=== PATIENT | female | born 1935 | race Caucasian/White ===

== ENCOUNTER → 2021-06-15 13:11 | Outpatient (BNVA) | payer OTHER, SELFPAY | PROVIDERS: PCP Internal Medicine; Visit Provider Nurse Practitioner Family ==

== ENCOUNTER → 2021-08-18 09:25 | Outpatient (BNVA) | payer OTHER, SELFPAY | PROVIDERS: PCP Internal Medicine; Visit Provider Nurse Practitioner Family | DX: F09 Unspecified mental disorder due to known physiological condition (principal) ==

== ENCOUNTER → 2022-03-30 13:28 | Outpatient (BNVA) | payer OTHER, SELFPAY | PROVIDERS: PCP Internal Medicine; Visit Provider Nurse Practitioner Family | DX: F09 Unspecified mental disorder due to known physiological condition (principal) ==

== ENCOUNTER 2022-06-06 13:42 | Outpatient (REF) | payer OTHER, SELFPAY ==
--- NOTE | ~2022-06-06 | MR_ITS ---
EXAMINATION: MR BRAIN WITHOUT CONTRAST CLINICAL INFORMATION: Headache COMPARISON: MRI of the brain without contrast 06/18/2021 TECHNIQUE: Multiplanar multisequence MR imaging of the brain was obtained without intravenous contrast. FINDINGS: There is no acute infarct on diffusion-weighted imaging. There is no intracranial hemorrhage on iron-sensitive imaging. No extra-axial collection or mass effect/herniation. Scattered periventricular and deep white matter T2 FLAIR hyperintensities consistent with mild underlying microangiopathy. No hydrocephalus. Moderate generalized volume loss with commensurate sulcal and ventricular prominence. Stable absent left intradural vertebral artery flow-void, likely reflecting chronic high-grade stenosis or occlusion The midline structures are normal. The cerebellar tonsils are normally positioned. The craniocervical junction is normal. Degenerative changes of the upper cervical spine. Marrow signal is within normal limits. The visualized soft tissues are without significant abnormality. No signal abnormality within the paranasal sinuses or within the mastoid air cells. MR/MR head/brain wo con IMPRESSION: 1. No acute intracranial abnormality. 2. Generalized cerebral volume loss and chronic microangiopathy 3. Stable absent left intradural vertebral artery flow-void, likely reflecting chronic high-grade stenosis or occlusion.
== END 2022-06-06 13:43 | disposition home or self-care (01) ==
LOC: HO.MRI 13:42
PROVIDERS: PCP Internal Medicine; Visit Provider Nurse Practitioner Family
DX: R53.83 Other fatigue (principal); R51.9 Headache, unspecified; F09 Unspecified mental disorder due to known physiological condition
CPT/HCPCS: 70551

== ENCOUNTER → 2022-06-12 15:58 | Outpatient (BNVA) | payer OTHER, SELFPAY | PROVIDERS: PCP Internal Medicine; Visit Provider Nurse Practitioner Family | DX: Z13.89 Encounter for screening for other disorder (principal) ==

== ENCOUNTER 2022-11-20 07:33 | Outpatient (AMB) | payer OTHER, SELFPAY ==
[2022-11-20 07:43] VITALS: BP 148/62; PULSE 59; O2SAT 96; BMI 20.7
--- NOTE | 2022-11-20 07:43 | A.OFFVIS_ITS ---
Intake Vital Signs 11/20/22 07:43 Height 5 ft 4 in Weight 120 lb 8 oz BMI 20.7 BP 148/62 H Blood Pressure Location Rt brachial Position Sitting Pulse 59 Pulse Source Pulse Oximeter Pulse Oximetry (%) 96 Oxygen Delivery Method Room Air Intake Visit Reasons: f/u appt for cognitive disfunction - Confirmed Intake Note: Pt presents as a f/u cognitive dysfunction. Pt states heaviness in the head again. Pt also complains of pain in her leg. Heaviness returned about 3-4 weeks ago. Pt fell out of bed on and her knee and hips hurt so they have been trying to get an xray. Aboriginal Education Worker Coordinator Required: No Accompanied by: Other Relationship Allergies No Known Allergies Allergy (Verified 11/20/22 07:50) Medication List - Last Reconciled 11/20/22 by JOSEPH Branch amlodipine 2.5 mg PO DAILY cholecalciferol (vitamin D3) 10 mcg PO DAILY donepezil 10 mg PO BEDTIME 90 days fluticasone propion-salmeterol 250-50 mcg/dose 1 inh inhalation Q12H selmcrmiowf-owmtsnvhc-stsydzca 100-62.5-25 mcg (Trelegy Ellipta) 1 ea inhalation DAILY magnesium oxide 400 mg PO BEDTIME 90 days mecobalamin (vitamin B12) 5,000 mcg orally daily; 90 days memantine 28 mg PO DAILY 90 days riboflavin (vitamin B2) 400 mg PO DAILY 90 days HPI HPI Comments History of Present Illness Details 86-yr-old female presents for f/u visit, pt is accompanied by her stepdtr Yvette. Pt reports that she had a fall 5 days ago. She states she fell out of bed- notes that she was sleeping in a twin bed and possibly rolled out of it. Since, she has been having right hip and right knee steady aching pain, which moves down into the leg. The knee pain is worse. She has home PT and OT- they have suggested she sleep in an alternate room, which has a bigger bed. She has been having increased top of head heaviness again. Pt states Pt has been doing some cervical/cranial massage. In the past, Amitriptyline 10mg was taken for a few days- but was stopped after 2-3 days as she was admitted to the hospital w/ dehydration. In the past, she did try gepant samples, which did seem to be somewhat helpful. Yvette is also concerned about pt's cognition- tra in terms of pt being susceptible to fraud and signing up for services she does not need- say especially when sales people come to her house. She has written checks for things she did not need. Family plans to remove all checks from the premises, however Yvette is concerned about how to prevent pt from unintentionally signing contracts etc. 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 [facility] Medical History (Updated 11/20/22 @ 14:03 by JOSEPH Branch) Cataract Cognitive dysfunction COPD (chronic obstructive pulmonary disease) HTN (hypertension) Surgical History H/O: hysterectomy History of back surgery Social History Household Members: None Housing: House Alcohol intake: current Alcohol intake frequency: holidays/special occasions only Patient Tobacco Use Status: Former Tobacco user Review of Systems Const All systems reviewed & are unremarkable except as noted in HPI and below Physical Exam Vital Signs: Last Vital Signs Pulse 59 11/20/22 07:43 BP 148/62 H 11/20/22 07:43 Pulse Ox 96 11/20/22 07:43 Oxygen Delivery Method Room Air 11/20/22 07:43 BMI result Body Mass Index 20.7 Const General: cooperative and no acute distress Orientation/consciousness: patient oriented x3 Resp Effort & Inspection: normal respiratory effort and able to speak in complete sentences Back/Spine/Pelvis Other: Bilateral posterior cervical tightness. Cervical ROM: full Left Spurling: normal Right Spurling: normal. Neuro Other: No scalp tenderness. General: patient oriented x3 Cranial nerves: Yes CN's II-XII intact bilaterally Extrem Right lower extremity: hip/thigh Details: tenderness and normal ROM and knee Details: tenderness, swelling and abnormal ROM Details: pain with active ROM during Details: in extension and in flexion and pain with passive ROM during Details: in extension and in flexion Assessment & Plan Assessment & Plan (1) Cognitive dysfunction: Comment: Forgetfulness, repeating herself, impaired executive functioning. Code(s): F09 - Unspecified mental disorder due to known physiological condition (2) Headache: Code(s): R51.9 - Headache, unspecified (3) Right knee pain: Code(s): M25.561 - Pain in right knee (4) Fall: Code(s): W19.XXXA - Unspecified fall, initial encounter (5) Acute right hip pain: Code(s): M25.551 - Pain in right hip Plan For headache: Stopped Amitriptyline 10mg qhs- ? not tolerated d/t dehydration. Trial Gabapentin 100-300mg qhs. Continue Mag and B2. Concur w/ PT and OT For impaired cognition: Continue Namenda 28mg qd. Continue Donepazil 10mg qhs. Advised to f/u w/ pt's water superintendent- likely pt's POA should be invoked/activated. For right hip and knee pain s/p fall- Check right knee and hip XR. f/u in 3-4 months or sooner prn Orders: Orders XR knee RT 4V Today M25.561 - Pain in right knee, W19.XXXA - Unspecified fall, initial encounter XR hip RT w PEL1V Today M25.551 - Pain in right hip, W19.XXXA - Unspecified fall, initial encounter Medications: New gabapentin 100 - 300 mg (1 - 3 x 100 mg) PO BEDTIME 30 days 90 caps 3RF Coding Level of Care Code Est Pt Level 4 (85795) Diagnoses Cognitive dysfunction F09 Headache R51.9 Right knee pain M25.561 Fall W19.XXXA Acute right hip pain M25.551
== END 2022-11-20 08:40 | disposition home or self-care (01) ==
PROVIDERS: PCP Internal Medicine; Visit Provider Nurse Practitioner Family
DX: R41.89 Other symptoms and signs involving cognitive functions and awareness (principal); R51.9 Headache, unspecified; M25.561 Pain in right knee; W06.XXXA Fall from bed, initial encounter; M25.551 Pain in right hip
CPT/HCPCS: 99214

== ENCOUNTER → 2022-11-20 07:33 | Outpatient (BNVA) | payer OTHER, SELFPAY | PROVIDERS: PCP Internal Medicine; Visit Provider Nurse Practitioner Family ==

== ENCOUNTER 2023-03-05 09:43 | Outpatient (AMB) | payer OTHER, SELFPAY ==
--- NOTE | 2023-03-05 09:45 | A.OFFVIS_ITS ---
Intake Vital Signs 03/05/23 09:50 Height 5 ft 4 in Weight 121 lb BMI 20.8 BP 118/60 Blood Pressure Location Rt brachial Position Sitting Pulse 62 Pulse Source Pulse Oximeter Pulse Oximetry (%) 98 Oxygen Delivery Method Room Air Intake Visit Reasons: f/u appt cognitive disfunction/Confirmed Intake Note: Patient presents for follow up. still having issues with the heaviness feeling on top of her head. Allergies No Known Allergies Allergy (Verified 03/05/23 09:53) Medication List - Last Reconciled 03/05/23 by JOSEPH Branch amlodipine 2.5 mg PO DAILY cholecalciferol (vitamin D3) 10 mcg PO DAILY donepezil 10 mg PO BEDTIME 90 days fluticasone propion-salmeterol 250-50 mcg/dose 1 inh inhalation Q12H dwmxvyyniao-bykzcyyft-collcjhk 100-62.5-25 mcg (Trelegy Ellipta) 1 ea inhalation DAILY gabapentin 200 mg (2 x 100 mg) PO BEDTIME 90 days gabapentin 300 mg PO BEDTIME 90 days magnesium oxide 400 mg PO BEDTIME 90 days mecobalamin (vitamin B12) 5,000 mcg orally daily; 90 days memantine 28 mg PO DAILY 90 days riboflavin (vitamin B2) 400 mg PO DAILY 90 days HPI HPI Comments History of Present Illness Details 87-yr-old female presents for f/u visit, accompanied by her stepdtr Yvette. Pt had hospitalization in Dec-Jan for Covid-19- was feeling run down and increased top of head heaviness. She continues to have have the top of head heaviness- waking up most days w/ 10/15 head heaviness, which subsides as the day progresses. When the head heaviness is worse- sometimes her right eye droops. She uses Tylenol 1-2 x's per day. The gepant sample was tried twice- but not very effective. She is taking Gabapentin 100mg qhs, sometimes bid- which helps the sciatica but not really the headache. Her cognition is a bit worse. She has been susceptible to fraud schemes. She is not as detailed in her descriptions of her physical symptoms. She continues to live alone with support from family, neighbors, and Yvette helps to manage her care/home. She is compliant w/ Donepazil and Namenda Xr 28mg qd. [facility] Medical History (Updated 03/05/23 @ 20:51 by JOSEPH Branch) Cataract COPD (chronic obstructive pulmonary disease) HTN (hypertension) Cognitive dysfunction Surgical History H/O: hysterectomy History of back surgery Social History Household Members: None Housing: House Alcohol intake: current Alcohol intake frequency: holidays/special occasions only Patient Tobacco Use Status: Former Tobacco user Review of Systems Const All systems reviewed & are unremarkable except as noted in HPI and below Physical Exam Vital Signs: Last Vital Signs Pulse 62 03/05/23 09:50 BP 118/60 03/05/23 09:50 Pulse Ox 98 03/05/23 09:50 Oxygen Delivery Method Room Air 03/05/23 09:50 BMI result Body Mass Index 20.8 Const General: cooperative and no acute distress HEENT Head: Yes normocephalic Resp Effort & Inspection: normal respiratory effort and able to speak in complete sentences Neuro Other: Alert, responding appropriately. STM lapses- unable to state date, year, country. No palpable scalp tenderness. Posterior and lateral cervical tightness and tenderness. General: gait normal and CN's II-XI intact bilaterally (w/ mild right eye droop) Cognition (Neuro): normal cognition Motor exam (neuro): 5/5 motor strength present throughout Deep tendon reflexes (DTR's): Right triceps reflex intensity grade: 2+, Left triceps reflex intensity grade: 2+, Rt Biceps (C5, C6): 2+, Left biceps reflex intensity grade: 2+, Right brachioradialis reflex intensity grade: 2+, Left brachioradialis reflex intensity grade: 2+, Right patellar reflex intensity grade: 1+ and Left patellar reflex intensity grade: 1+ Psych Speech and movement: Normal speech and movement present Attitude: cooperative Assessment & Plan Assessment & Plan (1) Headache: Code(s): R51.9 - Headache, unspecified (2) Cervical spinal stenosis: Comment: Multilevel degenerative spinal arthropathy. Moderate spinal canal stenosis at C5-C6. Mild spinal canal stenoses at C4-C5 and C6-C7. Moderate to severe neural foraminal stenoses from C3-C7. Code(s): M48.02 - Spinal stenosis, cervical region (3) Migraine without aura: Code(s): G43.009 - Migraine without aura, not intractable, without status migrainosus Plan For headache, migraine, cervicalgia: Discussed trying to wean off Namneda- there are reports of top of head heaviness w/ Namenda, however dtr is concerned this may worsen her cognition. Trial Emgality 250mg sc x's 1 then 120mg sc q month- family will assist pt. Continue Gabapentin 100-300mg qhs. Continue Mag and B2. Continue PT Will refer pt to pain management- she may benefit from trigger point injections. Previous trials- Amitriptyline- not tolerated. Contraindications- BBs as pt is already on amlodipine and normotensive. ? For impaired cognition: Continue Namenda 28mg qd for now. Continue Donepazil 10mg qhs. f/u in 3-4 months or sooner prn Orders: Referrals Pain Management Referral M48.02 - Spinal stenosis, cervical region, R51.9 - Headache, unspecified Medications: New Emgality Pen (galcanezumab-gnlm) 120 mg subcut ONCE 1 mL 6RF 30 days NS Coding Level of Care Code Est Pt Level 4 (36694) Diagnoses Headache R51.9 Cervical spinal stenosis M48.02 Migraine without aura G43.009
[2023-03-05 09:50] VITALS: BP 118/60; PULSE 62; O2SAT 98; BMI 20.8
== END 2023-03-05 10:34 | disposition home or self-care (01) ==
PROVIDERS: PCP Internal Medicine; Visit Provider Nurse Practitioner Family
DX: R51.9 Headache, unspecified (principal); M48.02 Spinal stenosis, cervical region; G43.009 Migraine without aura, not intractable, without status migrainosus
CPT/HCPCS: 99214

== ENCOUNTER → 2023-03-05 09:43 | Outpatient (BNVA) | payer OTHER, SELFPAY | PROVIDERS: PCP Internal Medicine; Visit Provider Nurse Practitioner Family | DX: M25.561 Pain in right knee (principal); W19.XXXA Unspecified fall, initial encounter; M25.551 Pain in right hip ==

== ENCOUNTER → 2023-03-20 12:19 | Outpatient (BNVA) | payer OTHER, SELFPAY | PROVIDERS: PCP Internal Medicine; Visit Provider Nurse Practitioner Family ==

== ENCOUNTER 2023-04-19 10:25 | Outpatient (AMB) | payer OTHER, SELFPAY ==
--- NOTE | 2023-04-19 10:26 | MHC.OFFVIS ---
Intake Vital Signs 04/19/23 10:28 Height 5 ft 4 in Weight 118 lb BMI 20.3 BP 110/58 L Blood Pressure Location Lt brachial Position Sitting Respiration 12 Pulse 81 Pulse Source Pulse Oximeter Pulse Oximetry (%) 96 Oxygen Delivery Method Room Air Intake Visit Reasons: Headaches, unspecified/possible trigger point inj. Allergies No Known Allergies Allergy (Verified 04/19/23 10:32) Medication List - Last Reconciled 04/19/23 by Grace Ashton LPN amlodipine 2.5 mg PO DAILY cholecalciferol (vitamin D3) 10 mcg PO DAILY donepezil 10 mg PO BEDTIME 90 days Emgality Pen (galcanezumab-gnlm) 120 mg subcut ONCE 30 days NS fluticasone propion-salmeterol 250-50 mcg/dose 1 inh inhalation Q12H vcdynrpgcoz-reocxobtw-gyuvqhla 100-62.5-25 mcg (Trelegy Ellipta) 1 ea inhalation DAILY gabapentin 200 mg (2 x 100 mg) PO BEDTIME 90 days gabapentin 300 mg PO BEDTIME 90 days magnesium oxide 400 mg PO BEDTIME 90 days mecobalamin (vitamin B12) 5,000 mcg orally daily; 90 days memantine 28 mg PO DAILY 90 days riboflavin (vitamin B2) 400 mg PO DAILY 90 days HPI Headaches, unspecified/possible trigger point inj. HPI Details 87-year-old female who presents today to the office for an evaluation of headaches. ? The patient was hospitalized in December/January 2023 for a COVID-19 infection and was experiencing increased top of the head heaviness. She continues to have rof-cd-uvi-head heaviness and has been waking up most of the day with a 7/10 headache. She has occasional right eye droops when her headache is worse. She uses extra-strength Tylenol, 1-2 tablets a day. She has tried the Gepant sample with no benefit. She has also tried Amitriptyline 10 mg, which was taken for 2?3 days but had to stop due to hospitalization with dehydration. She has a short-term memory loss issue. She takes Namenda 28 mg/qd and Donepazil 10 mg/qhs for impaired cognition. Her neurologist recommended doing neck and head trigger point injections. She has been doing physical therapy at [facility] but has stopped since March 2023. She also recently started Emgality for migraine headaches. She reports left sided low back pain that radiates down to her left leg. She has had some sciatica issues in the past. [facility] Medical History (Updated 04/23/23 @ 15:44 by Sanjay Mendes MD) Cataract COPD (chronic obstructive pulmonary disease) HTN (hypertension) Cognitive dysfunction Surgical History H/O: hysterectomy History of back surgery Social History Household Members: None Housing: House Alcohol intake: current Alcohol intake frequency: holidays/special occasions only Patient Tobacco Use Status: Former Tobacco user Review of Systems Const All systems reviewed & are unremarkable except as noted in HPI and below Physical Exam Vital Signs: Last Vital Signs Pulse 81 04/19/23 10:28 Resp 12 04/19/23 10:28 BP 110/58 L 04/19/23 10:28 Pulse Ox 96 04/19/23 10:28 Oxygen Delivery Method Room Air 04/19/23 10:28 BMI result Body Mass Index 20.3 General: Appears afebrile. Alert and oriented. Mood and affect appropriate. Follows and participates in conversation appropriately. Respiratory effort is unlabored. Able to transition from sit to stand unassisted. Ambulates with bilaterally normal heel strike and toe off. Tenderness to palpation overlying the left posterior head and neck region. Office Procedures Injection Trigger Point Multi Left neck and lower back trigger point injections Pre-procedure diagnosis: Myofascial pain Post-procedure diagnosis: Myofascial pain Site and number of trigger points: Left cervical paraspinal, occipitalis, trapezius muscles, left lumbar latissimus dorsi Solution: Total volume administered 5 cc of bupivacaine 0.25%. The procedure, its benefits, and its risks were explained to the patient and all questions were answered. Prior to the start of the procedure, a ?time out? was performed to confirm correct patient, procedure, and laterality. Trigger points were identified by manual palpation and marked. The skin was cleaned with Chloraprep. A 1.5 inch 25 G needle was used. Each of the trigger points were approximated and elevated in the direction away from the body. Dry needling then took place for five seconds. Approximately 0.5 ml to 1 ml of injectate was delivered to the trigger point followed by dry needling for five seconds. This process was repeated at each trigger point site. The patient tolerated the procedure well. The patient tolerated the procedure well, without complication. The patient denied any numbness, paresthesias, or weakness. Post-procedure vitals were recorded as part of the nursing discharge note in electronic medical record. Following a period of observation, the patient was discharged in stable condition with written discharge instructions. Trigger Point Multiple: 50949- Trigger point injection =/>3 Nerve Block Details: Greater Occipital Nerve Block, Left A physical exam was used to isolate the location of the targeted nerves. These injection sites were prepped with alcohol. Using a sterile technique, a 25 gauge 1.5-inch needle was introduced into the overlying nerve. A total 3 mL 0.5% bupivacaine was injected around the left greater and lesser occipital nerves in a fan-like motion. Aspirations were negative for blood, CSF, and air prior to injection at all sites. The needle was removed, the skin cleansed and a sterile bandage was applied where needed. The patient tolerated the procedure well and no complications were encountered. Following the procedure the patient's vital signs were stable. The patient was discharged home in good condition with post-procedural instructions. Time Out: Immediately prior to the procedure, the following was verbally confirmed that there is a signed consent form and that the correct patient, planned procedure, site and side are consistent with documentation and that necessary equipment and/or blood products are available prior to the start of the case. Complications: none EBL: <5 cc. CPT: 96396-Jbnjehk Occipital Procedure code (CPT) selection complete Results Reviewed Results Reviewed: No imaging is available for review. Assessment & Plan Assessment & Plan (1) Migraine without aura: Code(s): G43.009 - Migraine without aura, not intractable, without status migrainosus (2) Headache: Code(s): R51.9 - Headache, unspecified (3) Myofascial pain: Code(s): M79.18 - Myalgia, other site (4) Cervico-occipital neuralgia of left side: Code(s): M54.81 - Occipital neuralgia Plan Patient is status post left occipital nerve block and left neck and lower back trigger point injections. Patient tolerated procedure well and was discharged home in stable condition with discharge instructions. All questions were answered. The patient will continue her physical therapy for neck and lower back pain. Repeat as needed if these injections are helpful. Scribed for Dr. Mendes by Vamsi Rose, medical insurance claims specialist, on 04/19/2023. I, Dr. Mendes, have personally reviewed and agree with the information entered by the scribe. Coding Level of Care Code New Pt Level 4 (08856) Diagnoses Migraine without aura G43.009 Headache R51.9 Myofascial pain M79.18 Cervico-occipital neuralgia of left side M54.81 CPT Codes Details - Trigger Point Multiple: 23079- Trigger point injection =/>3 ([id number]) Nerve Block - CPT: 89044-Cizfzvw Occipital ([id number])
[2023-04-19 10:28] VITALS: BP 110/58; PULSE 81; RESP 12; O2SAT 96; BMI 20.3
== END 2023-04-19 11:04 | disposition home or self-care (01) ==
PROVIDERS: PCP Internal Medicine; Referring Provider Nurse Practitioner Family; Visit Provider Internal Medicine
DX: G43.009 Migraine without aura, not intractable, without status migrainosus (principal); R51.9 Headache, unspecified; M79.18 Myalgia, other site; M54.81 Occipital neuralgia
CPT/HCPCS: 20553; 64405; 99204

== ENCOUNTER → 2023-04-19 10:25 | Outpatient (BNVA) | payer OTHER, SELFPAY | PROVIDERS: PCP Internal Medicine; Referring Provider Nurse Practitioner Family; Visit Provider Internal Medicine | DX: M79.18 Myalgia, other site (principal); G43.009 Migraine without aura, not intractable, without status migrainosus; M54.81 Occipital neuralgia | CPT/HCPCS: 20553; 64405; J0665 ==

== ENCOUNTER 2023-07-09 09:46 | Outpatient (AMB) | payer OTHER, SELFPAY ==
--- NOTE | 2023-07-09 09:46 | A.OFFVIS_ITS ---
Intake Intake Visit Reasons: 4 mnts f/u appt Intake Note: Pt presents for 6 month follow up for cervical spinal stenosis via telehealth call. [employer] Required: No Allergies No Known Allergies Allergy (Verified 07/09/23 09:47) Medication List - Last Reconciled 07/09/23 by JOSEPH Branch amlodipine 2.5 mg PO DAILY cholecalciferol (vitamin D3) 10 mcg PO DAILY donepezil 10 mg PO BEDTIME 90 days Emgality Pen (galcanezumab-gnlm) 120 mg subcut ONCE 30 days NS fluticasone propion-salmeterol 250-50 mcg/dose 1 inh inhalation Q12H dkdnvclizjk-kelfbbawj-acvugeie 100-62.5-25 mcg (Trelegy Ellipta) 1 ea inhalation DAILY gabapentin 200 mg (2 x 100 mg) PO BEDTIME 90 days gabapentin 300 mg PO BEDTIME 90 days magnesium oxide 400 mg PO BEDTIME 90 days mecobalamin (vitamin B12) 5,000 mcg orally daily; 90 days memantine 28 mg PO DAILY 90 days riboflavin (vitamin B2) 400 mg PO DAILY 90 days tramadol 50 mg PO TID PRN HPI HPI Comments History of Present Illness Details 87-yr-old female presents for f/u teleph one visit. Pt is accompanied by her dtr Yvette. Pt is continuing to have heavy headedness. Her heavy headedness is more frequent, near daily. Worse in the am and better in the evening. When the heavy headedness is worse, her STM is worse. She has been doing PT. She has switched pain management clinic. She has a C7-T1 epidural injection yesterday- pt is not sure if this has helped yet, feels overall just heavy. They do not feel the Emgality has been helpful. She is taking Gabapentin 100mg qhs- this does not seem to help head heaviness, but helps her sciatica s/s. Using Tramadol prn for arm pain- this does not seem to be worsening her cognitive symptoms. Family/neighbors are monitoring this closely. [facility] Medical History (Updated 04/23/23 @ 15:44 by Sanjay Mendes MD) Cataract COPD (chronic obstructive pulmonary disease) HTN (hypertension) Cognitive dysfunction Surgical History H/O: hysterectomy History of back surgery Social History Household Members: None Housing: House Alcohol intake: current Alcohol intake frequency: holidays/special occasions only Patient Tobacco Use Status: Former Tobacco user Physical Exam Const General: cooperative and no acute distress Orientation/consciousness: patient oriented x3 Resp Effort & Inspection: normal respiratory effort and able to speak in complete sentences Neuro General: patient oriented x3 Cognition (Neuro): normal cognition Psych Mental Status: mental status grossly normal Affect: normal affect Attitude: cooperative Assessment & Plan Assessment & Plan (1) Cognitive dysfunction: Comment: Forgetfulness, repeating herself, impaired executive functioning. Code(s): F09 - Unspecified mental disorder due to known physiological condition (2) Migraine without aura: Code(s): G43.009 - Migraine without aura, not intractable, without status migrainosus (3) Headache: Code(s): R51.9 - Headache, unspecified (4) Cervico-occipital neuralgia of left side: Code(s): M54.81 - Occipital neuralgia (5) Myofascial pain: Code(s): M79.18 - Myalgia, other site (6) Cervical spinal stenosis: Comment: Multilevel degenerative spinal arthropathy. Moderate spinal canal stenosis at C5-C6. Mild spinal canal stenoses at C4-C5 and C6-C7. Moderate to severe neural foraminal stenoses from C3-C7. Code(s): M48.02 - Spinal stenosis, cervical region Plan For headache, migraine, cervicalgia: Hold Emgality 120mg sc q month for now. Continue Gabapentin 100-200mg qhs. Continue Mag and B2. Continue PT Follow-up with pain management as scheduled. Previous trials- Amitriptyline- not tolerated. Contraindications- BBs as pt is already on amlodipine and normotensive. Future considerations: low dose baclofen or cyclobenzaprine. ? For impaired cognition: Continue Namenda 28mg qd for now. Continue Donepazil 10mg qhs. ? f/u in 4 months or sooner prn Medications: Refilled memantine 28 mg PO DAILY 90 ea 3RF 90 days donepezil 10 mg PO BEDTIME 90 tabs 3RF 90 days Discontinued gabapentin Discontinued Reason: Doctor's Order 300 mg PO BEDTIME 90 days 90 caps 1RF Emgality Pen Discontinued Reason: Doctor's Order 120 mg subcut ONCE 30 days 1 mL 6RF NS Telehealth Telehealth Location of provider rendering services: practice address Location of patient: address on file Patient Identification confirmed using: Name, : Yes Telehealth method: voice only Patient verbally consented to treatment: Yes Patient verbally consented to billing insurance company: Yes Patient informed of any privacy concerns related to visit: Yes Minutes spent on Phone/Video with Pt.: 25 Coding Level of Care Code Tele Est Pt Level 4 (85708) Diagnoses Cognitive dysfunction F09 Migraine without aura G43.009 Headache R51.9 Cervico-occipital neuralgia of left side M54.81 Myofascial pain M79.18 Cervical spinal stenosis M48.02
== END 2023-07-09 11:57 | disposition home or self-care (01) ==
LOC: HO.HSMS 09:46
PROVIDERS: PCP Internal Medicine; Visit Provider Nurse Practitioner Family
DX: R41.89 Other symptoms and signs involving cognitive functions and awareness (principal); G43.009 Migraine without aura, not intractable, without status migrainosus; M54.81 Occipital neuralgia; M79.18 Myalgia, other site; M48.02 Spinal stenosis, cervical region
CPT/HCPCS: 99214

== ENCOUNTER → 2023-07-09 09:46 | Outpatient (BNVA) | payer OTHER, SELFPAY | PROVIDERS: PCP Internal Medicine; Visit Provider Nurse Practitioner Family ==

== ENCOUNTER 2025-03-30 13:23 | Outpatient (AMB) | payer OTHER, SELFPAY ==
--- OUTSIDE RECORDS SUMMARY | 2025-03-25 17:08 | XMS_ITS | Continuity of Care Document ---
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 Role Phone Malika Loja Primary Care [id number] Date(s): 03/22/25 - 03/25/[address] [address]- Discharge Disposition: A-D/C Home Attending Physician: Nico Arenas MD Admitting Physician: Severiano Guzman DO Referring Physician: Not on Staff, Referring MD Encounter Type: Disch IP Allergies, Adverse Reactions, Alerts Substance Criticality Severity Reaction Reaction Severity Status ibuprofen Active lisinopril Active losartan Active Functional Status Functional Status Assessment Assessment Assessment Component Result Effecti ve Date Unspecifed Functional Status Assessment Skin abnormality typ e (observable entity) Unknown Etiology 03/23/25 Functional Status Assessment Assessment Assessment Component Result Effecti ve Date Norm scale total score 20 Functional Status Assessment Assessment Assessment Component Result Effecti ve Date Total Falls Risk Score 15 03/24 Functional Status Assessment Assessment Assessment Component Result Effecti ve Date Unspecifed Functional Status Assessment Skin abnormality typ e (observable entity) Surgical incision 03/25/25 Functional Status Assessment Assessment Assessment Component Result Effecti ve Date Total Falls Risk Score 17 03/25 Functional Status Assessment Assessment Assessment Component Result Effecti ve Date Norm scale total score 20 Functional Status Assessment Assessment Assessment Component Result Effecti ve Date Norm scale total score 20 Functional Status Assessment Assessment Assessment Component Result Effecti ve Date Unspecifed Functional Status Assessment Skin abnormality typ e (observable entity) Surgical incision 03/24/25 Functional Status Assessment Assessment Assessment Component Result Effecti Total Falls Risk Score 9 03/24 Functional Status Assessment Assessment Assessment Component Result Effecti Total score [AUDIT] 0 03/22/25 Functional Status Assessment Assessment Assessment Component Result Effect Disability status [CUBS] I'm Safe - I rarely have acute or chronic symptoms affecting housing, employment, social interactions, etc. 03/22/25 Difficulty communica ting in usual language No 03/22/25 Difficulty Reading O r Writing No 03/22/25 Do you need any mraco tional assistance or accommodations during your visit No 03/22/25 Are you deaf, or do you have serious difficulty hearing No 03/22/25 Are you blind, or do you have serious difficulty seeing, even when wearing glasses No 03/22/25 Because of a physica l, mental, or emotional condition, do you have serious difficulty concentrating, remembering, or making decisions No 03/22/25 Because of a physica l, mental, or emotional condition, do you have difficulty doing errands alone such as visiting a physician's office or shopping No 03/22/25 Do you have serious difficulty walking or climbing stairs No 03/22/25 Do you have difficul ty dressing or bathing No 03/22/25 Immunizations Given and Recorded Vaccine Date Status Refusal Reason influenza virus vaccine, inactivated 01/03/25 Give n influenza virus vaccine, inactivated 12/27/22 Give n [id number] 12y+ bivalent booster vax 03/05/22 Recorded SARS-CoV-2 (COVID-19) mRNA BNT-162b2 vac 01/07/21 Recorded SARS-CoV-2 (COVID-19) mRNA BNT-162b2 vac 06/10/20 Recorded SARS-CoV-2 (COVID-19) mRNA BNT-162b2 vac 05/20/20 Recorded Medications acetaminophen 325 mg oral tablet 975 mg, By Mouth, 3 times a day, Refills 0, Maintenance, 02/01/25 12:25:00 PM EDT, Partial fill upon patient request if the prescription is for a schedule II opioid drug. Start Date: 02/01/25 Status: Ordered Medication Dispense Status: Completed Total Allowed Fills: 1 Fills Dispensed: 0 albuterol 2.5 mg/0.5 mL (0.5%) inhalation solution 0.5 mL = 2.5 mg, Neb, 2 times a day, 0 Refills, Maintenance, 02/14/25 10:55:00 AM EST, Partial fill upon patient request if the prescription is for a schedule II opioid drug. Start Date: 02/14/25 Status: Ordered Medication Dispense Status: Completed Total Allowed Fills: 1 Fills Dispensed: 0 Cerefolin Brain Wellness oral tablet 1 tablet, By Mouth, Daily, 0 Refills, Maintenance, 01/25/25 5:22:00 PM EDT, Partial fill upon patient request if the prescription is for a schedule II opioid drug. Start Date: 01/25/25 Status: Ordered Medication Dispense Status: Completed Total Allowed Fills: 1 Fills Dispensed: 0 cyanocobalamin 500 mcg sublingual tablet 1 tablet = 500 mcg, Sublingual, Daily, 0 Refills, Maintenance, 03/08/25 5:39:00 PM EST, Partial fillupon patient request if the prescription is for a schedule II opioid drug. Start Date: 03/08/25 Status: Ordered Medication Dispense Status: Completed Total Allowed Fills: 1 Fills Dispensed: 0 diclofenac 1% topical gel = 4 Gm, Topically, 3 times a day, # 360 Gm, 0 Refills, Maintenance, 01/13/25 4:30:00 PM EDT, Gel, [id number], Partial fill upon patient request if the prescription is for a schedule II opioiddrug., 163, cm, 01/11/25 15:49:00 EDT, Height, 57.2, kg, 01/07/25 0:03:00 EDT, Dry Weight Start Date: 01/13/25 Status: Ordered Medication Dispense Status: Completed Quantity: 360.0 Unit: g Total Allowed Fills: 1 Fills Dispensed: 0 donepezil 10 mg oral tablet 10 mg, 1, tablet, By Mouth, Daily at bedtime, Refills 0, Maintenance, 01/25/25 2:57:00 PM EDT, Partial fill upon patient request if the prescription is for a schedule II opioid drug. Start Date: 01/25/25 Status: Ordered Medication Dispense Status: Completed Total Allowed Fills: 1 Fills Dispensed: 0 Eliquis 2.5 mg oral tablet 1 tablet = 2.5 mg, By Mouth, 2 times a day, # 60 tablet, 11 Refills, Maintenance, 01/14/24 10:38:00 AM EDT, Tablet, [facility], Partial fill upon patient request if the prescription is for a schedule II opioid drug., 163, cm, 01/14/24 10:02:00 EDT, Height, 51.7, kg, 01/14/24 1:49:00 EDT, Dry Weight Start Date: 01/14/24 Status: Ordered Medication Dispense Status: Completed Quantity: 60.0 Unit: tablet Total Allowed Fills: 12 Fills Dispensed: 0 folic acid 1 mg oral tablet 1 mg, By Mouth, Daily, # 90 tablet, Refills 0, Tot. Refills 0, Maintenance, 02/15/25 1:26:00 PM EST, Route to Pharmacy Electronically, [facility], Partial fill upon patient request if the prescription is for a schedule II opioid drug., 162.2, cm, 02/15/25 3:25:00 EST, Height, 58, kg, 02/14/25 9:08:00 EST, Dry Weight Start Date: 02/15/25 Stop Date: 05/16/25 Status: Ordered Medication Dispense Status: Completed Quantity: 90.0 Unit: tablet Total Allowed Fills: 1 Fills Dispensed: 0 gabapentin 100 mg oral capsule 200 mg, 2, capsule, By Mouth, Daily at bedtime, Refills 0, Maintenance, 03/08/25 5:18:00 PM EST, Partial fill upon patient request if the prescription is for a schedule II opioid drug. Start Date: 03/08/25 Status: Ordered Medication Dispense Status: Completed Total Allowed Fills: 1 Fills Dispensed: 0 Lasix 20 mg oral tablet 20 mg, By Mouth, Every 48 hours, PRN, Administer only if patient has a weight gain of more than 3 pounds in a day or 5 pounds in 3 days along with any symptoms of shortness of breath/pedal edema, Refills 0, Maintenance, weight gain of more than 3 pounds in a day or 5 pounds in 3 days, 02/16/25 1:01:00 PM EST, Partial fill upon patient request if the prescription is for a schedule II opioid drug. Start Date: 02/16/25 Status: Ordered Medication Dispense Status: Completed Total Allowed Fills: 1 Fills Dispensed: 0 magnesium oxide 400 mg oral tablet 1 tablet = 400 mg, By Mouth, Daily, 0 Refills, Maintenance, 03/08/25 5:40:00 PM EST, Partial fill upon patient request if the prescription is for a schedule II opioid drug. Start Date: 03/08/25 Status: Ordered Medication Dispense Status: Completed Total Allowed Fills: 1 Fills Dispensed: 0 memantine 28 mg oral capsule, extended release 1 capsule = 28 mg, By Mouth, Daily, # 30 capsule, 0 Refills, Maintenance, 02/14/25 11:20:00 AM EST, ER Capsule, [facility], Partial fill upon patient request if the prescription is for a schedule II opioid drug., 162.2, cm, 02/14/25 10:43:00 EST, Height, 58, kg, 02/14/25 9:08:00 EST, Dry Weight Start Date: 02/14/25 Status: Ordered Medication Dispense Status: Completed Quantity: 30.0 Unit: capsule Total Allowed Fills: 1 Fills Dispensed: 0 Riboflavin = 200 mg, By Mouth, Daily, 0 Refills, Maintenance, 03/08/25 5:40:00 PM EST, Partial fill upon patient request if the prescription is for a schedule II opioid drug. Start Date: 03/08/25 Status: Ordered Medication Dispense Status: Completed Total Allowed Fills: 1 Fills Dispensed: 0 thiamine 100 mg oral tablet 200 mg, 2, tablet, By Mouth, Daily, for 90 days, # 180 tablet, Refills 0, Tot. Refills 0, Acute 05/16/25 1:27:00 PM EST, 02/15/25 1:27:00 PM EST, Route to Pharmacy Electronically, [facility], Partial fill upon patient request if the prescription is for a schedule II opioid drug., 162.2,cm, 02/15/25 3:25:00 EST, Height, 58, kg, 02/14/25 9:08:00 EST, Dry Weight Start Date: 02/15/25 Stop Date: 05/16/25 Status: Ordered Medication Dispense Status: Completed Quantity: 180.0 Unit: tablet Total Allowed Fills: 1 Fills Dispensed: 0 Trelegy Ellipta 100 mcg-62.5 mcg-25 mcg/inh inhalation powder 1 puffs, Inhalation, Daily, at the same time every day, # 60 each, 0 Refills, Maintenance, 01/04/25 5:04:00 PM EDT, Powder, Partial fill upon patient request if the prescription is for a schedule II opioid drug. Start Date: 01/04/25 Status: Ordered Medication Dispense Status: Completed Quantity: 60.0 Unit: each Total Allowed Fills: 1 Fills Dispensed: 0 Vitamin B6 50 mg oral tablet 100 mg, By Mouth, Daily, for 90 days, # 90 tablet, Refills 0, Tot. Refills 0, Acute 05/16/25 1:26:00 PM EST, 02/15/25 1:26:00 PM EST, Route to Pharmacy Electronically, [facility], Partialfill upon patient request if the prescription is for a schedule II opioid drug., 162.2, cm, 02/15/25 3:25:00 EST, Height, 58, kg, 02/14/25 9:08:00 EST, Dry Weight Start Date: 02/15/25 Stop Date: 05/16/25 Status: Ordered Medication Dispense Status: Completed Quantity: 90.0 Unit: tablet Total Allowed Fills: 1 Fills Dispensed: 0 Vitamin D3 2000 intl units oral tablet 1 tablet = 50 mcg, By Mouth, Daily, 0 Refills, Maintenance, 03/08/25 5:41:00 PM EST, Partial fill upon patient request if the prescription is for a schedule II opioid drug. Start Date: 03/08/25 Status: Ordered Medication Dispense Status: Completed Total Allowed Fills: 1 Fills Dispensed: 0 Problem List Condition Confirmation Course Effective Dates Status Health St atus Informant Weakness Confirmed Active Atrial fibrillation Confirmed Active Stage 3b chronic kidney disease (CKD) Confirmed Active COPD on long-term inhaled steroid therapy Confirmed Active COVID-19 1 Confirmed 01/04/23 Active Dementia Confirmed Active Hypertension Confirmed Active Neck pain Confirmed Active 1Problem added by Discern Expert Results Radiology Reports * Exam Date Time Procedure Performing Provider Status 03/22/25 11:27 AM Chest 2 Views Frontal and Lat Auth (Verified) Notes: (Chest 2 Views Frontal and Lat) Reason For Exam: Shortness of Breath RESULT: Chest 2 Views Frontal and Lat Chest 2 Views Frontal and Lat Hx of Present Illness: syncope; Reason: Shortness of Breath; Clinical Question(s): CHF / CHF COMPARISON: 03/17/2025 FINDINGS: LINES AND TUBES: None. LUNGS AND PLEURA: Clear lungs. Normal pulmonary vascularity. No pleural effusion. No pneumothorax. HEART, MEDIASTINUM AND TAYLER: Heart is normal in size. Aorta is mildly calcified. BONES AND SOFT TISSUES: No acute abnormality. IMPRESSION: No evidence of acute abnormality. WSN: [id number] Ordering Physician: Swati Gallegos Dictated By: Jeff Land MD Dictated Date/Time: 03/22/25 12:05 p Reviewed By: Jeff Land MD Signed By: Jeff Land MD Signed Date/Time: 03/22/25 12:05 pm Transcribed By: AMBER Transcribed Date/Time: 03/22/25 12:05 pm Vital Signs Most recent to oldest [Reference Range]: 1 2 3 Height 163 cm (03/25/25 2:16 PM) 163 cm (03/25/25 8:46 AM) 163 cm (03/25/25 7:49 AM) Weight 53.1 kg (03/25/25 3:39 AM) 52.2 kg (03/22/25 4:27 PM) Oxygen Saturation [94-100 %] 99 % (03/25/25 2:16 PM) 99 % (03/25/25 8:46 AM) 97 % (03/25/25 7:49 AM) Pulse Rate [55-90 bpm] 55 bpm (03/25/25 2:16 PM) 55 bpm (03/25/25 8:46 AM) 57 bpm (03/25/25 7:49 AM) Body Mass Index [18.5-24.99 kg/m2] 19.99 kg/m2 (03/25/25 3:39 AM) 19.65 kg/m2 (03/22/25 4:27 PM) Blood Pressure [90-138/55-84 mm Hg] 119/52mm Hg (03/25/25 2:16 PM) 127/50mm Hg (03/25/25 8:46 AM) 116/57mm Hg (03/25/25 7:49 AM) Respiratory Rate [16-30 br/min] 18 br/min (03/25/25 2:16 PM) 18 br/min (03/25/25 8:46 AM) 17 br/min (03/25/25 7:49 AM) Temperature [96.8-100.4 DegF] 98.1 DegF (03/25/25 2:16 PM) 97.5 DegF (03/25/25 8:46 AM) 97.0 DegF (03/25/25 7:49 AM) Mode of Delivery (Oxygen) Room air (03/25/25 2:16 PM) Room air (03/25/25 8:46 AM) Room air (03/25/25 7:49 AM) Blood pressure sites Arm, right (03/25/25 2:16 PM) Arm, right (03/25/25 8:46 AM) Arm, right (03/25/25 7:49 AM) Temperature Route Oral (03/25/25 2:16 PM) Oral (03/25/25 8:46 AM) Oral (03/25/25 7:49 AM) Dry Weight 52.2 kg (03/22/25 4:27 PM) Weight Obtained Via Bed scale (03/25/25 3:39 AM) Bed scale (03/22/25 4:27 PM) Dry Weight Obtained Via Bed scale (03/22/25 4:27 PM) Social History Social History Type Response Smoking Status Former smoker, quit more than 30 days ago entered on: 01/14/24 Sex Female Sex Representation Female (finding) Status Not Social Determinants of Health Assessment Assessment Assessment Component Result Effecti ve Date Unspecifed Social Determinants of Health Assessment Housing status I have housing 03/22/25 Have you or any fami ly members you live with been unable to get any of the following when it was really needed in past 1 year [PRAPARE] None 03/22/25 Has lack of transpor tation kept you from medical appointments, meetings, work, or from getting things needed for daily living No 03/22/25 Are you worried abou t losing your housing [PRAPARE] No 03/22/25 How often do you see or talk to people that you care about and feel close to [PRAPARE] 6 or more times a week 03/22/25 Do you feel physical ly and emotionally safe where you currently live [PRAPARE] Yes 03/22/25 Within the last year , have you been afraid of your partner or ex-partner Yes 03/22/25 Admission evaluation note * Pricilla BRADFORD, Gordo Johnson: PERFORM, MODIFY, MODIFY, MODIFY, MODIFY Event Display: Admission Note Authored Date: [id number] Patient: ??PILI LIN ? Age:??89 Years?Sex:??Female?:??1935?LOC:??[facility]?? Chief Complaint/Reason for Consultation syncope vomiting History of Present Illness 89-year-old female patient with a complex medical history including dementia, chronic atrial fibrillation on anticoagulation with Eliquis,??recurrent unexplained syncope (most recently earlier this month),??chronic kidney disease, COPD, and essential hypertension.?? Patient was brought into the emergency department for evaluation of??worsening facial droop and??neck pain. ??Apparently she received epidural??neck injection (no records available).?? Her daughter reports worsening facial droop,??she called EMS and was brought today to the emergency department as a code stroke.?? Patient was recently discharged from this facility on 03/10 after evaluation of recurrent syncope and similar symptoms of facial droop, was seen by neurology when deemed secondary to profound hypotension secondary to bradycardia.?? Was seen by cardiology with the consideration of implantable loop recorder as an outpatient and continuation of amiodarone however there was a concern of tachybradycardia syndrome over the past few months. ?? Upon arrival to the hospital, she was hemodynamically stable CT scan of the head with no acute intracranial abnormalities.?? CT angiogram head/neck with no acute large vessel occlusion however it showed chronic occlusion of the left vertebral artery and multiple thyroid nodules and thin-walled cavitary lesion in the right upper lobe.?? She was hemodynamically stable upon presentation, maintaining sats at 99% on room air.?? She was bradycardic down to 40s and 90s.?? EKG was obtained, reviewedby myself with slow A-fib.?? Patient was seen by neurology however she was deemed to be at baselinefunctional status with no acute findings and they have signed off.?? Due to recurrent unexplained syncope, and presence of bradycardia, admission was requested to medicine for further management evaluation.?? Upon evaluation, she was lying comfortably without any signs of distress.?? She was alert and orient times but she is not able to remember the exact details of the events. Review of Systems A full review of systems was completed and is otherwise negative except as mentioned in history of present illness. Objective Measurements?? Height: 163 cm (03/22/25) Weight: 52.2 kg (03/22/25) Dry Weight: 52.2 kg (03/22/25) Body Mass Index: 19.65 kg/m2 (03/22/25) ? Vital Signs?? Temperature: 98 DegF (03/22/25 16:27:00) Temperature Route: Oral (03/22/25 16:27:00) Pulse Rate:??116 bpm??High (03/22/25 16:27:00) Respiratory Rate: 17 br/min (03/22/25 16:27:00) Systolic Blood Pressure:??140 mm Hg??High (03/22/25 16:27:00) Diastolic Blood Pressure: 73 mm Hg (03/22/25 16:27:00) Blood pressure sites: Arm, right (03/22/25 16:27:00) Mean Arterial Pressure: 95 mm Hg (03/22/25 16:27:00) Pulse Pressure: 67 mm Hg (03/22/25 16:27:00) Oxygen Saturation: 100 % (03/22/25 16:27:00) Mode of Delivery (Oxygen): Room air (03/22/25 16:27:00) Early Warning Score: 2 (03/22/25 16:31:48) ? Intake/Output? No Data Available ? Physical Exam General Appearance: The patient is in NAD. Head: atraumatic EENT: MMM, no scleral icterus Cardiovascular: RRR no MRG Respiratory:?? Breath sounds clear to auscultation bilaterally. No wheezing. room air. GI: Soft. Nontender and nondistended. Normal bowel sounds present throughout abdomen. MS:?? No edema or erythema in the lower extremities. Peripheral sensation intact. Skin: warm, dry, no rashes Neuro:?? No slurred speech.?? Patient seen moving their upper and lower extremities independently. Psych: calm Lines: Peripheral IV in place. Assessment/Plan Diagnoses Abnormal finding on imaging ??(R93.89) Atrial fibrillation with slow ventricular response ??(I48.91) Bradycardia ??(R00.1) Chronic kidney disease (CKD) ??(N18.9) Dementia ??(F03.90) Facial droop ??(R29.810) Syncope ??(R55) ?? Syncope (R55) Bradycardia (R00.1) ? Recurrent unexplained syncope with bradycardia: Multiple admissions over recent months for similar symptoms??with prior extensive neurologic and cardiac workup without acute findings.??Current symptoms associated with??bradycardia in the 40s??and hypotension in the field during the last admission. Possible etiologies or tachybradycardia syndrome??or intermittent high-grade AV block??and/or autonomic dysfunction/orthostatic hypotension. Admitted to medicine. Continue to monitor telemetry. Avoid AV blocking agents. Will obtain orthostatic vitals. Cardiology consult for reassessment for the need of prolonged monitoring versus implantable??loop recorder versus pacemaker plantation given recurrent events. Fall precautions. Meanwhile, we will??hold Aricept and??memantine due to??possible vagal effects causing??hypotensionand bradycardia. ?? Atrial fibrillation with slow ventricular response (I48.91):??Chronic atrial fibrillation. She was found to be in A-fib with slow rate. Likely there is a component of tachybradycardia syndrome. Will hold amiodarone??till she is seen by cardiology in the morning. Continue to monitor for pauses or symptomatic bradycardia on telemetry. Eliquis will be on hold overnight patient evaluated by cardiology??in case she needs a pacemaker. ?? Facial droop (R29.810):??Concerning for stroke, ruled out. Code stroke activated on arrival. Brain imaging with no??acute/new findings. Neurology evaluated??and felt findings were chronic and nonacute??and no acute neurologic intervention needed. ?? Dementia (F03.90):??Seems to be mild since she is alert oriented x 3. Will hold Aricept and memantine??given bradycardia see above. ?? Abnormal finding on imaging (R93.89):??Incidental imaging findings: (Multiple thyroid nodules??and thin-walled cavitary lesion in the right upper lobe. No acute interventions during hospitalization. Recommend outpatient follow-up ?? Chronic kidney disease (CKD) (N18.9):??Creatinine at baseline.??Continue to monitor. ?? VTE Prophylaxis:??On Eliquis which is currently on hold??(she may need a pacemaker).??If no plans for pacemaker by cardiology in the morning,??resume Eliquis. ?? Code Status:??Full code,??she reports that she wants to be resuscitated.??When I ask her about DNR/DNI status during the last admission, she reports that she??changed her mind.??I believe??this needsto be discussed with her HCP in the morning. ?Order Code Status:??Code Status Ordered ? Histories Allergies Allergies ?(Active and Proposed Allergies Only) lisinopril? (Severity: Unknown severity, Onset: Unknown) ibuprofen? (Severity: Unknown severity, Onset: Unknown) losartan? (Severity: Unknown severity, Onset: Unknown) ? Past Medical History/Problem List Active Problems(8) Atrial fibrillation COPD on long-term inhaled steroid therapy COVID-19 Dementia Hypertension Neck pain Stage 3b chronic kidney disease (CKD) Weakness ? Past Surgical History No surgery history documented. ? Social History Alcohol Details:??Use: Never. Substance Abuse Details:??Use: Never. Tobacco Details:??Use: Former smoker, quit more than 30 days ago. ? Family History No Family History documented. ? Medications Home Medications Acetaminophen (acetaminophen 325 mg oral tablet)??975 Milligram By Mouth 3 times a day Albuterol (albuterol 2.5 mg/0.5 mL (0.5%) inhalation solution)??0.5 Milliliter 2.5 Milligram Neb 2 times a day amiODARONE (amiodarone 200 mg oral tablet)??100 Milligram 0.5 tablet By Mouth Daily apixaban (Eliquis 2.5 mg oral tablet)??1 tab(s) 2.5 Milligram By Mouth 2 times a day Cholecalciferol (Vitamin D3 2000 intl units oral tablet)??1 tab(s) 50 Microgram By Mouth Daily Cyanocobalamin (cyanocobalamin 500 mcg sublingual tablet)??1 tab(s) 500 Microgram Sublingual Daily Diclofenac Topical (diclofenac 1% topical gel)??4 gram Topically 3 times a day Donepezil (donepezil 10 mg oral tablet)??10 Milligram 1 tablet By Mouth Daily at bedtime fluticason/umeclidinium/vilant (Trelegy Ellipta 100 mcg-62.5 mcg-25 mcg/inh inhalation powder)??1 puff(s) Inhalation Daily at the same time every day Folic Acid (folic acid 1 mg oral tablet)??1 Milligram By Mouth Daily for 90 Days Furosemide (Lasix 20 mg oral tablet)??20 Milligram By Mouth Every 48 hours as needed Administer only if patient has a weight gain of more than 3 pounds in a day or 5 pounds in 3 days along with any symptoms of shortness of breath/pedal edema weight gain of more than 3 pounds in a day or 5 pounds in3 days Gabapentin (gabapentin 100 mg oral capsule)??200 Milligram 2 capsule By Mouth Daily at bedtime Magnesium Oxide (magnesium oxide 400 mg oral tablet)??1 tab(s) 400 Milligram By Mouth Daily Memantine (memantine 28 mg oral capsule, extended release)??1 capsule 28 Milligram By Mouth Daily Multivitamin (Cerefolin Brain Wellness oral tablet)??1 tab(s) By Mouth Daily Pyridoxine (Vitamin B6 50 mg oral tablet)??100 Milligram By Mouth Daily for 90 Days Riboflavin??200 Milligram By Mouth Daily Thiamine (thiamine 100 mg oral tablet)??200 Milligram 2 tablet By Mouth Daily for 90 Days ? Results Recent Labs BLOOD COUNT & DIFF WBC 6.7 k/mm3 ()?? 03/22/2025 10:56 RBC 4.37 m/mm3 ()?? 03/22/2025 10:56 Hgb 13.7 Gm/dL ()?? 03/22/2025 10:56 Hct 42.1 % ()?? 03/22/2025 10:56 MCV 96.3 femtoliters ()?? 03/22/2025 10:56 MCH 31.4 pg ()?? 03/22/2025 10:56 MCHC 32.5 Gm/dL (Low)?? 03/22/2025 10:56 Platelet Count 194 k/mm3 ()?? 03/22/2025 10:56 RDW-SD 53.1 femtoliters (High)?? 03/22/2025 10:56 MPV 10.7 femtoliters ()?? 03/22/2025 10:56 Nucleated RBC (Automated) 0.0 #/100 WBC'S ()?? 03/22/2025 10:56 Abs. NRBC 0.0 k/mm3 ()?? 03/22/2025 10:56 Abs. Neut 3.7 k/mm3 ()?? 03/22/2025 10:56 Abs. Lymph 1.8 k/mm3 ()?? 03/22/2025 10:56 Abs. Lares 0.7 k/mm3 ()?? 03/22/2025 10:56 Abs. Eo 0.3 k/mm3 ()?? 03/22/2025 10:56 Abs. Baso 0.1 k/mm3 ()?? 03/22/2025 10:56 Neut % 55.8 % ()?? 03/22/2025 10:56 Lymph % 27.5 % ()?? 03/22/2025 10:56 Lares % 11.0 % (High)?? 03/22/2025 10:56 Eos % 4.3 % ()?? 03/22/2025 10:56 Baso % 0.7 % ()?? 03/22/2025 10:56 Imm Gran 0.7 % ()?? 03/22/2025 10:56 Abs. Imm Gran 0.1 k/mm3 ()?? 03/22/2025 10:56 ?? CARDIAC High Sensitivity Troponin (HSTnT) 34 ng/L (High)?? 03/22/2025 14:07 ?? CHEM GENERAL Sodium 141 mmol/L ()?? 03/22/2025 10:56 Potassium 5.1 mmol/L ()?? 03/22/2025 10:56 Chloride 105 mmol/L ()?? 03/22/2025 10:56 Bicarbonate Level 23 mmol/L ()?? 03/22/2025 10:56 Anion Gap 13 mmol/L ()?? 03/22/2025 10:56 Glucose Level 95 mg/dL ()?? 03/22/2025 10:56 BUN 19 mg/dL ()?? 03/22/2025 10:56 Creatinine-Blood 1.16 mg/dL (High)?? 03/22/2025 10:56 Estimated GFR Creatinine 45 ML/MIN/1.73 M2 ()?? 03/22/2025 10:56 Calcium 10.0 mg/dL ()?? 03/22/2025 10:56 Protein, Total 7.7 Gm/dL ()?? 03/22/2025 10:56 Albumin 4.1 Gm/dL ()?? 03/22/2025 10:56 AG Ratio 1.1 ()?? 03/22/2025 10:56 Alkaline Phosphatase 53 units/L ()?? 03/22/2025 10:56 AST (SGOT) 44 units/L (High)?? 03/22/2025 10:56 ALT (SGPT) 27 units/L ()?? 03/22/2025 10:56 Bilirubin, Total 0.6 mg/dL ()?? 03/22/2025 10:56 Lactate 1.2 mmol/L ()?? 03/22/2025 10:56 ?? ENDOCRINE/TUMOR MARKER TSH 0.37 uIU/mL (Low)?? 03/22/2025 10:56 Free T4 1.63 ng/dL ()?? 03/22/2025 10:56 ?? UA/URINALYSIS Appear/Color, Urine YELLOW ()?? 03/22/2025 14:26 Specific [place], Urine 1.013 ()?? 03/22/2025 14:26 pH, Urine 6.5 ()?? 03/22/2025 14:26 Albumin, Urine NEGATIVE ()?? 03/22/2025 14:26 Glucose, Urine NEGATIVE ()?? 03/22/2025 14:26 Ketones, Urine NEGATIVE ()?? 03/22/2025 14:26 Bilirubin, Urine NEGATIVE ()?? 03/22/2025 14:26 Hemoglobin, Urine NEGATIVE ()?? 03/22/2025 14:26 Nitrite, Urine NEGATIVE ()?? 03/22/2025 14:26 Leukocyte, Urine NEGATIVE ()?? 03/22/2025 14:26 Urobilinogen NORMAL mg/dL ()?? 03/22/2025 14:26 WBC's, Urine <1 /HPF () 03/22/2025 14:26 RBC's, Urine NONE SEEN /HPF ()?? 03/22/2025 14:26 Squamous Epith 1 /HPF ()?? 03/22/2025 14:26 Mucus SLIGHT /LPF ()?? 03/22/2025 14:26 ?? URINE OTHER Est Creatinine Clearance 27.09 mL/min ()?? 03/22/2025 16:31 ?? VIROLOGY COVID-19 by RT-PCR NEGATIVE ()?? 03/22/2025 10:57 ? Electronically Signed on 03/23/25 02:52 AM Gordo Pleitez MD Electronically Signed on 03/23/25 03:45 AM Gordo Pleitez MD EKG study * Event Display: ECG 12-Lead Authored Date: Please click on pdf link to open report * Event Display: ECG 12-Lead Authored Date: Ventricular Rate: 62 BPM Atrial Rate: 62 BPM P-R Interval: 186 ms QRS Duration: 80 ms Q-T Interval: 430 ms QTC Calculation(Bazett): 436 ms P Rumsey: 62 degrees R Rumsey: -11 degrees T Rumsey: -10 degrees Normal sinus rhythm Nonspecific T wave abnormality Abnormal ECG When compared with ECG of 22-Mar-2025 10:37, Sinus rhythm has replaced Atrial fibrillation Confirmed by RAUL SANTOS MD ([id number]) on 03/24/2025 5:01:37 PM [place]: RAUL SANTOS MD * Event Display: ECG 12-Lead Authored Date: [id number] Please click on pdf link to open report * Event Display: ECG 12-Lead Authored Date: Ventricular Rate: 50 BPM QRS Duration: 82 ms Q-T Interval: 474 ms QTC Calculation(Bazett): 432 ms R Rumsey: -3 degrees T Rumsey: -8 degrees Atrial fibrillation with slow ventricular response ST and T wave abnormality, consider inferior ischemia ST and T wave abnormality, consider anterior ischemia Abnormal ECG When compared with ECG of 17-Mar-2025 11:33, Atrial fibrillation has replaced Sinus rhythm ST more depressed in Inferior leads Inverted T waves have replaced nonspecific T wave abnormality in Anterior leads Confirmed by ARABELLA BARNES MD ([id number]) on 03/22/2025 5:45:10 PM [place]: ARABELLA BARNES MD Procedure * Event Display: Cardiac Rhythm Strips Authored Date: * Event Display: Cardiac Rhythm Strips Authored Date: * Event Display: Cardiac Rhythm Strips Authored Date: * Event Display: Cardiac Rhythm Strips Authored Date: Hospital Progress note * Era Schaefer RN: PERFORM, VERIFY, MODIFY, MODIFY, SIGN Event Display: Progress Note Hospital Authored Date: Patient: PILI LIN Age: 89 years Sex: Female : 1935 Associated Diagnoses: None Author: Era Schaefer RN Findings Problem Related to Alteration in Cardiac Function (new) : Alteration in Cardiac Function/new 03/25/2025 11:20 EST Alteration in Cardiac Status Related to Syncope, Other: bradycadia Goals & Outcomes, Cardiac Status Pt will resume/maintain adequate cardiac output, Pt will resume/maintain adequate hemodynamic status, Pt will resume/maintain adequate respiratory function, Pt will resume/maintain intact neuro function, Pt will maintain adequate GI/ function appropriate for pt, Pt will maintain adequate nutrition status Cardiac Interventions Implemented Assess/monitor cardiac status, Assess/monitor neuro status, Assess/monitor respiratory status, Document & Monitor O2 Sats; Administer O2 as ordered, Ensure adequate caloric intake, If no bowel movement in 3 days activate bowel regime, Monitor & document daily weight, Teach/encourage deep breath & cough exercises BH Goals/Interventions, Cardiac Yes Cardiac, Problem Start 03/23/2025 13:38 Reviewed Plan with, Cardiac Status Patient Patient Progression, Cardiac Status Patient progressing according to plan . Nursing Data Vital Signs : VITAL SIGNS SECTION 03/25/2025 8:46 EST Early Warning Score 2.00 03/25/2025 8:46 EST Temperature 97.5 DegF Temperature Route Oral Pulse Rate 55 bpm Respiratory Rate 18 br/min Systolic Blood Pressure 127 mm Hg Diastolic Blood Pressure 50 mm Hg L Blood pressure sites Arm, right Mean Arterial Pressure 76 mm Hg Pulse Pressure 77 mm Hg Oxygen Saturation 99 % Mode of Delivery (Oxygen) Room air . Evaluation A&OX3, sinus eleni with 1st degree AVB on tele. Denies chest pain, palpitations and SOB. On room air. 1 assist with a walker. Call trejo within reach, bed in lowest locked position, bed alarm on. Family at bedside. See CIS for full assessment. Plan for discharge.. Discharge Information Case Management Discharge Plan : Case Management Discharge Plan Data 03/25/2025 10:41 EST Discharge Level of Care at Discharge Homehealth/VNA Discharge VNA/Hospice/Home Care [facility] [phone] Name of Agency #1 [facility] Service Categories #1 Home health aide, Occupational Therapy, Physical Therapy, Group Home, Speech Therapy Service Comments #1 [facility] will contact you after discharge to schedule a visit &remume services. Call them with questions or if you don't hear from them within 24hrs after discharge. Electronically Signed on 03/25/25 05:17 PM Era Schaefer RN * Hattie Sawyer RN: PERFORM, SIGN, VERIFY Event Display: Progress Note Hospital Authored Date: Patient: PILI LIN Age: 89 years Sex: Female : 1935 Associated Diagnoses: None Author: Hattie Sawyer RN Findings Problem Related to Alteration in Cardiac Function (new) : Alteration in Cardiac Function/new 03/25/2025 1:00 EST Alteration in Cardiac Status Related to Syncope, Other: bradycadia Goals & Outcomes, Cardiac Status Pt will resume/maintain adequate cardiac output, Pt will resume/maintain adequate hemodynamic status, Pt will resume/maintain adequate respiratory function, Pt will resume/maintain intact neuro function, Pt will maintain adequate GI/ function appropriate for pt, Pt will maintain adequate nutrition status Cardiac Interventions Implemented Assess/monitor cardiac status, Assess/monitor neuro status, Assess/monitor respiratory status, Assess for tolerance of IV infusions; verify rate & dose, Call/Report variances in ECG to provider, Document & Monitor O2 Sats; Administer O2 as ordered, Ensure adequate caloric intake, If no bowel movement in 3 days activate bowel regime, Monitor & document daily weight, Monitor anticoagulation values, Obtain 12 Lead ECG and CXR as ordered, Prep pt for treatments & procedures, Teach/encourage deep breath & cough exercises Goals/Interventions, Cardiac Yes Cardiac, Problem Start 03/23/2025 13:38 Reviewed Plan with, Cardiac Status Patient Patient Progression, Cardiac Status Patient progressing according to plan . Narrative/Incidental A&Ox3. Forgetful. Denies C/P, palpitations, SOB, dizziness. NSR/SB 50-60s on tele. 1x assist with a walker to ambulate. Bed in lowest locked position, bed alarm on, call trejo within reach, patient able to make needs known. Hourly rounds, safety maintained.. Electronically Signed on 03/25/25 03:31 AM Digna CALLOWAY, Hattie * Era Schaefer RN: MODIFY, MODIFY, SIGN, VERIFY, PERFORM, MODIFY, SIGN Event Display: Progress Note Hospital Authored Date: [id number] Patient: PILI LIN Age: 89 years Sex: Female : 1935 Associated Diagnoses: None Author: Era Schaefer RN Findings Problem Related to Alteration in Cardiac Function (new) : Alteration in Cardiac Function/new 03/24/2025 10:35 EST Alteration in Cardiac Status Related to Syncope, Other: bradycadia Goals & Outcomes, Cardiac Status Pt will resume/maintain adequate cardiac output, Pt will resume/maintain adequate hemodynamic status, Pt will resume/maintain adequate respiratory function, Pt will resume/maintain intact neuro function, Pt will maintain adequate GI/ function appropriate for pt, Pt will maintain adequate nutrition status Cardiac Interventions Implemented Assess/monitor cardiac status, Assess/monitor neuro status, Assess/monitor respiratory status, Document & Monitor O2 Sats; Administer O2 as ordered, Ensure adequate caloric intake, If no bowel movement in 3 days activate bowel regime, Monitor & document daily weight, Teach/encourage deep breath & cough exercises Goals/Interventions, Cardiac Yes Cardiac, Problem Start 03/23/2025 13:38 Reviewed Plan with, Cardiac Status Patient Patient Progression, Cardiac Status Patient progressing according to plan . Nursing Data Vital Signs : VITAL SIGNS SECTION 03/24/2025 7:59 EST Temperature 98.1 DegF Temperature Route Oral Pulse Rate 54 bpm L Respiratory Rate 18 br/min Systolic Blood Pressure 125 mm Hg Diastolic Blood Pressure 58 mm Hg Blood pressure sites Arm, right Mean Arterial Pressure 80 mm Hg Pulse Pressure 67 mm Hg Oxygen Saturation 97 % Mode of Delivery (Oxygen) Room air . Evaluation A&OX2, sinus eleni with 1st degree HB on tele. Denies chest pain, palpitations and SOB. Endorsed a headache. Prn tylenol administered. Endorsed 6/10 chest pain, Fernando BRADFORD notified, ekg done, prn oxy administered. On room air. Loop recorder placed at bedside. 1 assist with a walker. Call trejo within reach, bed in lowest locked position, bed alarm on. Family at bedside. See CIS for full assessment.. Electronically Signed on 03/24/25 06:39 PM Era Schaefer RN Electronically Signed on 03/24/25 07:10 PM Era Schaefer RN Note * Era Schaefer RN: PERFORM Event Display: Discharge/Transfer Note Hospital Authored Date: [id number] Nursing Discharge Note Entered On: 03/25/2025 17:09 EST Performed On: 03/25/2025 17:08 EST by Era Schaefer RN Nursing Discharge Note 2 Discharge Level of Care at Discharge : Homehealth/VNA Discharge Time : 03/25/2025 17:08 EST Discharge VNA/Hospice/Home Care(v001) : [facility] [phone] Tactical Deception Plans Officer Utilized : No Patient Left Unit Via : Wheelchair Patient Accompanied Off Unit with : Responsible adult, Other: Daughter DC Instructions Provided & Signed by Pt : Yes Patient Understands D/C Instructions : Yes Patient Instructions Discharge Signed : Yes Discharge Comments : IV removed, Tele removed Did Pt have Specialty Bed or Wound Vac : No Era Schaefer RN - 03/25/2025 17:08 EST Electronically Signed on 03/25/25 05:08 PM Silvano Era CALLOWAY MD, Emmanuel: PERFORM Event Display: Discharge/Transfer Note Hospital Authored Date: [id number] Patient: ??PILI LIN ? Age:??89 Years?Sex:??Female?:??1935?LOC:[facility]?? Patient Information Discharge Location: Primary Care Physician: Malika Loja Admit Date/Time: 03/22/2025 13:51 Discharge Disposition Discharge Disposition: Home with Home Health Discharge Diagnosis Syncope (R55) Bradycardia (R00.1) Atrial fibrillation with slow ventricular response (I48.91) Facial droop (R29.810) Dementia (F03.90) Chronic kidney disease (CKD) (N18.9) Abnormal finding on imaging (R93.89) _ Discharge Medications Acetaminophen (acetaminophen 325 mg oral tablet)??975 Milligram By Mouth 3 times a day Albuterol (albuterol 2.5 mg/0.5 mL (0.5%) inhalation solution)??0.5 Milliliter 2.5 Milligram Neb 2 times a day apixaban (Eliquis 2.5 mg oral tablet)??1 tab(s) 2.5 Milligram By Mouth 2 times a day Cholecalciferol (Vitamin D3 2000 intl units oral tablet)??1 tab(s) 50 Microgram By Mouth Daily Cyanocobalamin (cyanocobalamin 500 mcg sublingual tablet)??1 tab(s) 500 Microgram Sublingual Daily Diclofenac Topical (diclofenac 1% topical gel)??4 gram Topically 3 times a day Donepezil (donepezil 10 mg oral tablet)??10 Milligram 1 tablet By Mouth Daily at bedtime fluticason/umeclidinium/vilant (Trelegy Ellipta 100 mcg-62.5 mcg-25 mcg/inh inhalation powder)??1 puff(s) Inhalation Daily at the same time every day Folic Acid (folic acid 1 mg oral tablet)??1 Milligram By Mouth Daily for 90 Days Furosemide (Lasix 20 mg oral tablet)??20 Milligram By Mouth Every 48 hours as needed Administer only if patient has a weight gain of more than 3 pounds in a day or 5 pounds in 3 days along with any symptoms of shortness of breath/pedal edema weight gain of more than 3 pounds in a day or 5 pounds in3 days Gabapentin (gabapentin 100 mg oral capsule)??200 Milligram 2 capsule By Mouth Daily at bedtime Magnesium Oxide (magnesium oxide 400 mg oral tablet)??1 tab(s) 400 Milligram By Mouth Daily Memantine (memantine 28 mg oral capsule, extended release)??1 capsule 28 Milligram By Mouth Daily Multivitamin (Cerefolin Brain Wellness oral tablet)??1 tab(s) By Mouth Daily Pyridoxine (Vitamin B6 50 mg oral tablet)??100 Milligram By Mouth Daily for 90 Days Riboflavin??200 Milligram By Mouth Daily Thiamine (thiamine 100 mg oral tablet)??200 Milligram 2 tablet By Mouth Daily for 90 Days ? Discharge Medications Unchanged Acetaminophen (acetaminophen 325 mg oral tablet)975 Milligram Oral 3 times a day. Albuterol (albuterol 2.5 mg/0.5 mL (0.5%) inhalation solution)0.5 Milliliter Nebulized inhalation twice a day. apixaban (Eliquis 2.5 mg oral tablet)1 tab(s) Oral twice a day. Refills: 11. Cholecalciferol (Vitamin D3 2000 intl units oral tablet)1 tab(s) Oral Daily. Cyanocobalamin (cyanocobalamin 500 mcg sublingual tablet)1 tab(s) Sublingual Daily. Diclofenac Topical (diclofenac 1% topical gel)4 gram Topically 3 times a day. Refills: 0. Donepezil (donepezil 10 mg oral tablet)1 tab(s) Oral Daily at Bedtime. fluticason/umeclidinium/vilant (Trelegy Ellipta 100 mcg-62.5 mcg-25 mcg/inh inhalation powder)1 puff(s) Inhalation Daily. at the same time every day. Folic Acid (folic acid 1 mg oral tablet)1 Milligram Oral Daily for 90 Days. Refills: 0. Furosemide (Lasix 20 mg oral tablet)20 Milligram Oral every 48 hours as needed weight gain of more than 3 pounds in a day or 5 pounds in 3 days. Administer only if patient has a weight gain of more than 3 pounds in a day or 5 pounds in 3 days along with any symptoms of shortness of breath/pedal edema. Gabapentin (gabapentin 100 mg oral capsule)2 capsule Oral Daily at Bedtime. Magnesium Oxide (magnesium oxide 400 mg oral tablet)1 tab(s) Oral Daily. Memantine (memantine 28 mg oral capsule, extended release)1 capsule Oral Daily. Refills: 0. Multivitamin (Cerefolin Brain Wellness oral tablet)1 tab(s) Oral Daily. Pyridoxine (Vitamin B6 50 mg oral tablet)100 Milligram Oral Daily for 90 Days. Refills: 0. Pyucirijyc581 Milligram Oral Daily. Thiamine (thiamine 100 mg oral tablet)2 tab(s) Oral Daily for 90 Days. Refills: 0. Discontinued amiODARONE (amiodarone 200 mg oral tablet)0.5 tab(s) Oral Daily. Allergies Allergies ?(Active and Proposed Allergies Only) lisinopril? (Severity: Unknown severity, Onset: Unknown) ibuprofen? (Severity: Unknown severity, Onset: Unknown) losartan? (Severity: Unknown severity, Onset: Unknown) ? Hospital Course ?89-year-old female patient with a complex medical history including dementia, chronic atrial fibrillation on anticoagulation with Eliquis, recurrent unexplained syncope (most recently earlier this month), chronic kidney disease, COPD, and essential hypertension. Patient was brought into the emergency department for evaluation of worsening facial droop and neck pain. ?? Syncope (R55) Bradycardia (R00.1) ? Recurrent unexplained syncope with bradycardia: ??Multiple admissions over recent months for similar symptoms with prior extensive neurologic and cardiac workup without acute findings. Current symptoms associated with bradycardia in the 40s and hypotension in the field during the last admission. ??Possible etiologies or tachybradycardia syndrome or intermittent high-grade AV block and/or autonomic dysfunction/orthostatic hypotension. ??Avoid AV blocking agents. Orthostatic vital signs negative ??Discussed with EP cardiology, which recommended ILR which was placed on 03/24/2025. plan: follow up with cardiology as outpatient ? Atrial fibrillation with slow ventricular response (I48.91): Chronic atrial fibrillation. ??She was found to be in A-fib with slow rate. 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 ??plan: discontinue amiodarone ?continue with Syd as per discussion with EP cards ? Facial droop (R29.810): Concerning for stroke, ruled out. ??Code stroke activated on arrival. ??Brain imaging with no acute/new findings. ??Neurology evaluated and felt findings were chronic and nonacute and no acute neurologic intervention needed. ? Dementia (F03.90): Seems to be mild since she is alert oriented x 3. ??Daughter asking to resume Aricept, cardiology agreed. ? Abnormal finding on imaging (R93.89): Incidental imaging findings: ??(Multiple thyroid nodules and thin-walled cavitary lesion in the right upper lobe. ??No acute interventions during hospitalization. ??Recommend outpatient follow-up ? Patient was stable for discharge home, discussed with daughter ? Home VNA services to be resumed as previously prescribed ? Objective Assessment and Plan ? Vital Signs?? Temperature: 97.5 DegF (03/25/25 08:46:00) Temperature Route: Oral (03/25/25 08:46:00) Pulse Rate: 55 bpm (03/25/25 08:46:00) Respiratory Rate: 18 br/min (03/25/25 08:46:00) Systolic Blood Pressure: 127 mm Hg (03/25/25 08:46:00) Diastolic Blood Pressure:??50 mm Hg??Low (03/25/25 08:46:00) Blood pressure sites: Arm, right (03/25/25 08:46:00) Mean Arterial Pressure: 76 mm Hg (03/25/25 08:46:00) Pulse Pressure: 77 mm Hg (03/25/25 08:46:00) Oxygen Saturation: 99 % (03/25/25 08:46:00) Mode of Delivery (Oxygen): Room air (03/25/25 08:46:00) Early Warning Score: 2 (03/25/25 08:46:38) ? . Physical Exam Constitutional: Alert, in no acute distress. Mental Status: Oriented to person, place Head: Normocephalic. Respiratory: Clear to auscultation bilaterally. No wheezing, rales or rhonchi. Cardiovascular: S1 S2 regular. No murmurs, rubs or gallops.??RRR Gastrointestinal: Abdomen soft, non-tender, non-distended. Normal bowel sounds. Neurologic:Moves all extremities spontaneously.?? Skin: No rashes or lesions. No jaundice Musculoskeletal: No cyanosis or clubbing. No gross deformities. No pitting edema on Right or Left [facility] Pending Results No Pending Results Follow-Up Appointments Added Follow Up ?Time Frame ?Comments Bruce Velasquez?Call Cardiology office to confirm a follow up appointment Malika Torres?2 to 3 weeks Post Discharge Care Discharge ?03/25/25 10:50:00 EST ?Order Comment:?? Discharge Prescriptions ?None, 03/25/25 10:50:00 EST ?Order Comment:?? Results Discharge Labs BLOOD COUNT & DIFF WBC 6.7 k/mm3 ()?? 03/22/2025 10:56 RBC 4.37 m/mm3 ()?? 03/22/2025 10:56 Hgb 13.7 Gm/dL ()?? 03/22/2025 10:56 Hct 42.1 % ()?? 03/22/2025 10:56 MCV 96.3 femtoliters ()?? 03/22/2025 10:56 MCH 31.4 pg ()?? 03/22/2025 10:56 MCHC 32.5 Gm/dL (Low)?? 03/22/2025 10:56 Platelet Count 194 k/mm3 ()?? 03/22/2025 10:56 RDW-SD 53.1 femtoliters (High)?? 03/22/2025 10:56 MPV 10.7 femtoliters ()?? 03/22/2025 10:56 Nucleated RBC (Automated) 0.0 #/100 WBC'S ()?? 03/22/2025 10:56 Abs. NRBC 0.0 k/mm3 ()?? 03/22/2025 10:56 Abs. Neut 3.7 k/mm3 ()?? 03/22/2025 10:56 Abs. Lymph 1.8 k/mm3 ()?? 03/22/2025 10:56 Abs. Lares 0.7 k/mm3 ()?? 03/22/2025 10:56 Abs. Eo 0.3 k/mm3 ()?? 03/22/2025 10:56 Abs. Baso 0.1 k/mm3 ()?? 03/22/2025 10:56 Neut % 55.8 % ()?? 03/22/2025 10:56 Lymph % 27.5 % ()?? 03/22/2025 10:56 Lares % 11.0 % (High)?? 03/22/2025 10:56 Eos % 4.3 % ()?? 03/22/2025 10:56 Baso % 0.7 % ()?? 03/22/2025 10:56 Imm Gran 0.7 % ()?? 03/22/2025 10:56 Abs. Imm Gran 0.1 k/mm3 ()?? 03/22/2025 10:56 ?? CARDIAC High Sensitivity Troponin (HSTnT) 32 ng/L (High)?? 03/22/2025 17:17 ? CHEM GENERAL Sodium 141 mmol/L ()?? 03/22/2025 10:56 Potassium 5.1 mmol/L ()?? 03/22/2025 10:56 Chloride 105 mmol/L ()?? 03/22/2025 10:56 Bicarbonate Level 23 mmol/L ()?? 03/22/2025 10:56 Anion Gap 13 mmol/L ()?? 03/22/2025 10:56 Glucose Level 95 mg/dL ()?? 03/22/2025 10:56 BUN 19 mg/dL ()?? 03/22/2025 10:56 Creatinine-Blood 1.16 mg/dL (High)?? 03/22/2025 10:56 Estimated GFR Creatinine 45 ML/MIN/1.73 M2 ()?? 03/22/2025 10:56 Calcium 10.0 mg/dL ()?? 03/22/2025 10:56 Protein, Total 7.7 Gm/dL ()?? 03/22/2025 10:56 Albumin 4.1 Gm/dL ()?? 03/22/2025 10:56 AG Ratio 1.1 ()?? 03/22/2025 10:56 Alkaline Phosphatase 53 units/L ()?? 03/22/2025 10:56 AST (SGOT) 44 units/L (High)?? 03/22/2025 10:56 ALT (SGPT) 27 units/L ()?? 03/22/2025 10:56 Bilirubin, Total 0.6 mg/dL ()?? 03/22/2025 10:56 Lactate 1.2 mmol/L ()?? 03/22/2025 10:56 ?? ENDOCRINE/TUMOR MARKER TSH 0.37 uIU/mL (Low)?? 03/22/2025 10:56 Free T4 1.63 ng/dL ()?? 03/22/2025 10:56 ?? UA/URINALYSIS Appear/Color, Urine YELLOW ()?? 03/22/2025 14:26 Specific [place], Urine 1.013 ()?? 03/22/2025 14:26 pH, Urine 6.5 ()?? 03/22/2025 14:26 Albumin, Urine NEGATIVE ()?? 03/22/2025 14:26 Glucose, Urine NEGATIVE ()?? 03/22/2025 14:26 Ketones, Urine NEGATIVE ()?? 03/22/2025 14:26 Bilirubin, Urine NEGATIVE ()?? 03/22/2025 14:26 Hemoglobin, Urine NEGATIVE ()?? 03/22/2025 14:26 Nitrite, Urine NEGATIVE ()?? 03/22/2025 14:26 Leukocyte, Urine NEGATIVE ()?? 03/22/2025 14:26 Urobilinogen NORMAL mg/dL ()?? 03/22/2025 14:26 WBC's, Urine <1 /HPF () 03/22/2025 14:26 RBC's, Urine NONE SEEN /HPF ()?? 03/22/2025 14:26 Squamous Epith 1 /HPF ()?? 03/22/2025 14:26 Mucus SLIGHT /LPF ()?? 03/22/2025 14:26 Hold Urine Culture Testing available 48 hours from time of collection. ()?? 03/22/2025 14:26 ?? URINE OTHER Est Creatinine Clearance 27.09 mL/min ()?? 03/22/2025 16:31 ? VIROLOGY COVID-19 by RT-PCR NEGATIVE ()?? 03/22/2025 10:57 ? Image ?XR Chest 2 Views Frontal and Lat??03/22/2025 11:27 by Che Myers ?IMPRESSION: No evidence of acute abnormality. ?? 35 minutes spent on discharge Electronically Signed on 03/25/25 10:55 AM Eliceo Cox MD, Nico Schaefer RN, [facility]: PERFORM Event Display: Patient Education/Instruction Authored Date: [id number] Inpatient Adult Discharge Instructions. [address] [id number] Name: PILI LIN : 1935?? Visit: 03/22/2025 13:51?? Current Date: 03/25/2025 14:38 ?? Account: [id number]?? Inpatient Adult Discharge Instructions We would like to thank you for allowing us to assist you with your healthcare needs. The following includes patient education materials and information regarding your injury/illness. Our entire staffstrives to provide an excellent experience for our patients and their families. PLEASE ENSURE YOU FOLLOW-UP PER THE INSTRUCTIONS BELOW! ?? YOUR OPINION IS IMPORTANT TO US! Please complete the survey you may receive by mail or email. Your feedback will be used to make improvements to the healthcare experiences of our patients and their families. Surveys are administered by [employer] ?? If further treatment with your primary care physician or another doctor is recommended, it is important for you to keep the appointment. Call your primary care physician or return to the Emergency Department immediately if your condition worsens, fails to improve, or new symptoms develop. If you need to find a doctor, you can call [facility] for a referral at [phone] or toll free at [phone] or log in to [email or web address].. ?? [facility], in keeping with [facility] guidance, no longer requires face masks for staff, patientsor visitors in most situations. Similiar to time spent indoors at other locations, there is the chance that you were exposed to repiratory viruses during your time with us (such as flu or COVID-19). If you develop symptoms concerning for a viral respiratory infection, please seek testing (and treatment if indicated) from your medical provider or home test kit. ?? You can view and manage your care through the patient portal or by using a health care rony of your choosing. [employer] is a website that allows you to securely view your medical information including your hospital discharge summary, office visit summaries, medications and follow-up visits. You can also request appointments, renew medications, and request access to your medical information using a health care rony of your choosing, or just ask a question. You are entitled to know the individuals who participated in your treatment. This information is available within your medical record and will be provided upon your request. You can enroll at [email or web address] or register d uring your next office visit. You have been discharged from [facility], Patient Care Unit: M5??. If you have any questions regarding these instructions, including results of studies pending, afteryou leave, please call us and we will be happy to assist you 29/10. [facility] Your Care Team Attending Physician Nico Arenas MD?? Consulting Providers Nico Arenas MD?? Discharging Providers Nico Arenas MD Reason for Your Visit syncope vomiting?? Your Diagnosis Abnormal finding on imaging Atrial fibrillation with slow ventricular response Bradycardia Chronic kidney disease (CKD) Dementia Facial droop General medical Syncope Tests Performed Below is a partial list of the tests performed during your hospitalization. You may have had other tests and procedures not included in this list. Please discuss all test results with your provider. CBC w/ Differential Comprehensive Metabolic Panel COVID-19 (Novel Coronavirus), Rapid PCR FREE T4 High??Sensitivity??Troponin T Lactate Level TSH with T4 Reflex (Adults Only) Urinalysis w/hold for Urine Culture XR Chest 2 Views Frontal and Lat CBC w/ Differential?? COVID-19 (Novel Coronavirus), Rapid PCR?? Comprehensive Metabolic Panel?? Free T4?? High??Sensitivity??Troponin T?? Lactic Acid Level (Lactate Level)?? TSH with T4 Reflex (Adults Only)?? Urinalysis w/hold for Urine Culture?? Chest 2 Views Frontal and Lat (XR Chest 2 Views Frontal and Lat)?? Primary Care Provider Malika Loja? Advance Directive Health Care Proxy on File Yes - Health Care Proxy Discharge Vitals Temperature: 98.1 DegF Height: 163 cm Pulse Rate: 55 bpm Weight: 53.1 kg Respiratory Rate: 18 br/min Body Mass Index: 19.99 kg/m2 Systolic Blood Pressure: 119 mm Hg Body surface area: 1.55 Diastolic Blood Pressure:??52 mm Hg??Low ?? Oxygen Saturation: 99 % ?? Studies Pending All studies ordered during this hospital stay have been completed unless listed below. Please discuss all pending results with your provider listed above in these instructions. ?? No incomplete studies found?? What to do next Instructions From Your Doctor ?? Orders? 03/25/25 10:50:00 EST?? Prescriptions??, ??03/25/25 10:50:00 EST?? You Need to Schedule the Following Appointments Follow Up with??Bruce Velasquez ?? Where:[address] [facility], [address], [address] [facility] [place] [address]- Business (1) Additional Information: Call Cardiology office to confirm a follow up appointment Follow Up with??Malika Torres When:Within 2 to 3 weeks Where:[address] [place] [id number]- [facility] (1) Discharge Medications PILI LIN :1935 Visit Date:03/22/2025 Medications: Please continue your medications until treatment is completed or stopped by your provider. Medications not listed below should be discontinued. Discuss any questions related to medications with your provider. What How Much When Instructions Next Dose Unchanged Acetaminophen (acetaminophen 325 mg oral tablet) 975 Milligram Oral 3 times a day Ordering Physician: Haylee Cabrera MD Resume as normal Unchanged Albuterol (albuterol 2.5 mg/ 0.5 mL (0.5%) inhalation solution) 0.5 Milliliter Nebulized inhalation Twice a day Resume as normal Unchanged apixaban (Eliquis 2.5 mg oral tablet) 1 tab(s) Oral Twice a day Ordering Physician: Edvin Sesay DO Next dose 03/26 Unchanged Cholecalciferol (Vitamin D3 2000 intl units oral tablet) 1 tab(s) Oral Daily Next dose 03/26 Unchanged Cyanocobalamin (cyanocobalamin 500 mcg sublingual tablet) 1 tab(s) Sublingual Daily Next dose 03/26 Unchanged Diclofenac Topical (diclofenac 1% topical gel) 4 gram Topically 3 times a day Ordering Physician: Kishor Linn DO Resume as normal Unchanged Donepezil (donepezil 10 mg oral tablet) 1 tab(s) Oral Daily at Bedtime Resume as normal Unchanged fluticason/ umeclidinium/ vilant (Trelegy Ellipta 100 mcg-62.5 mcg-25 mcg/ inh inhalationpowder) 1 puff(s) Inhalation Daily Special Instructions: at the same time every day ?? Resume as normal Unchanged Folic Acid (folic acid 1 mg oral tablet) 1 Milligram Oral Daily Duration: 90 Days Ordering Physician: Justo Hansen MD, Elder Johnson Next dose 03/26 Unchanged Furosemide (Lasix 20 mg oral tablet) 20 Milligram Oral Every 48 hours as needed for weight gain of more than 3 pounds in a day or 5 pounds in 3 days Special Instructions: Administer only if patient has a weight gain of more than 3 pounds in a day or 5 pounds in 3 days along with any symptoms of shortness of breath/ pedal edema Ordering Physician: Panchito BRADFORD, Ashlee ?? Resume as normal Unchanged Gabapentin (gabapentin 100 mg oral capsule) 2 capsule Oral Daily at Bedtime Resume as normal Unchanged Magnesium Oxide (magnesium oxide 400 mg oral tablet) 1 tab(s) Oral Daily Resume as normal Unchanged Memantine (memantine 28 mg oral capsule, extended release) 1 capsule Oral Daily Ordering Physician: Mary Lou Schafer MD Resume as normal Unchanged Multivitamin (Cerefolin Brain Wellness oral tablet) 1 tab(s) Oral Daily Next dose 03/26 Unchanged Pyridoxine (Vitamin B6 50 mg oral tablet) 100 Milligram Oral Daily Duration: 90 Days Ordering Physician: Elder Kemp Sr., MD Resume as normal Unchanged Riboflavin 200 Milligram Oral Daily Resume as normal Unchanged Thiamine (thiamine 100 mg oral tablet) 2 tab(s) Oral Daily Duration: 90 Days Ordering Physician: Elder Kemp Sr., MD Resume as normal ?? What How Much When Comments Stop Taking amiODARONE (amiodarone 200 mg oral tablet) 0.5 tab(s) Oral Daily Prescription Given During Visit No new medications prescribed at time of discharge.?? Laboratory Results Below is a partial list of the most recent Laboratory test results done prior to this discharge. You may have had other tests and procedures not included in this list. Please discuss all test resultswith your provider. Est Creatinine Clearance - 27.09 mL/min (03/22/2025) CBC w/ Differential (03/22/2025) ???WBC - 6.7 k/mm3???RBC - 4.37 m/mm3???Hgb - 13.7 Gm/dL???Hct - 42.1 %???MCV - 96.3 femtoliters???MCH - 31.4 pg???MCHC - 32.5 Gm/dL???Platelet Count - 194 k/mm3???RDW-SD - 53.1 femtoliters???MPV - 10.7 femtoliters???Nucleated RBC (Automated) - 0.0 #/100 WBC'S???Abs. NRBC - 0.0 k/mm3???Abs. Neut - 3.7 k/mm3???Abs. Lymph - 1.8 k/mm3???Abs. Lares - 0.7 k/mm3???Abs. Eo - 0.3 k/mm3???Abs. Baso - 0.1 k/mm3???Neut % - 55.8 %???Lymph % - 27.5 %???Lares % - 11.0 %???Eos % - 4.3 %???Baso % - 0.7 %???Imm Gran - 0.7 %???Abs. Imm Gran - 0.1 k/mm3 Comprehensive Metabolic Panel (03/22/2025) ???Sodium - 141 mmol/L???Potassium - 5.1 mmol/L???Chloride - 105 mmol/L???Bicarbonate Level - 23 mmol/L???Anion Gap - 13 mmol/L???Glucose Level - 95 mg/dL???BUN - 19 mg/dL???Creatinine-Blood - 1.16 mg/dL???Estimated GFR Creatinine - 45 ML/MIN/1.73 M2???Calcium - 10.0 mg/dL???Protein, Total - 7.7 Gm/ dL???Albumin - 4.1 Gm/dL???AG Ratio - 1.1???Alkaline Phosphatase - 53 units/L???AST (SGOT) - 44 units/L???ALT (SGPT) - 27 units/L???Bilirubin, Total - 0.6 mg/dL COVID-19 (Novel Coronavirus), Rapid PCR (03/22/2025) ???COVID-19 by RT-PCR - NEGATIVE FREE T4 (03/22/2025) ???Free T4 - 1.63 ng/dL High??Sensitivity??Troponin T (03/22/2025) ???High Sensitivity Troponin (HSTnT) - 32 ng/L Lactate Level (03/22/2025) ???Lactate - 1.2 mmol/L TSH with T4 Reflex (Adults Only) (03/22/2025) ???TSH - 0.37 uIU/mL Urinalysis w/hold for Urine Culture (03/22/2025) ???Appear/Color, Urine - YELLOW???Specific [place], Urine - 1.013???pH, Urine - 6.5???Albumin, Urine - NEGATIVE???Glucose, Urine - NEGATIVE???Ketones, Urine - NEGATIVE???Bilirubin, Urine - NEGATIVE???Hemoglobin, Urine - NEGATIVE???Nitrite, Urine - NEGATIVE???Leukocyte, Urine - NEGATIVE???Urobilinogen - NORMAL WBC's, Urine - <1 /HPF RBC's, Urine - NONE SEEN Squamous Epith - 1 /HPF Mucus- SLIGHT???Hold Urine Culture - Testing available 48 hours from time of collection. Allergies (NKA means No Known Allergies) ibuprofen lisinopril losartan Problems Active Problems??(8) Atrial fibrillation?? COPD on long-term inhaled steroid therapy?? COVID-19?? Dementia?? Hypertension?? Neck pain?? Stage 3b chronic kidney disease (CKD)?? Weakness?? Education Materials Below is the list of Educational Leaflet Providered with your Discharge Instructions. [email or web address] Ignite Patient Education - Implantable Loop Recorder (ILR) Placement Post Procedure Instructions?? WebMD Ignite Patient Education - Bradycardia?? Valuables and Belongings I fully understand and agree that [facility] accepts no responsibility for all my personal property including clothing, toilet articles, radios, jewelry, dentures, hearing aids, rings, money, or any other property that is in my possession or is brought to me after admission. I understand certain valuables may be placed in a hospital safe for a short period of time. I understand that the hospital is not liable for loss or damage due to accident, fire, or other natural occurrence while said property is in the safe. I accept full responsibility for any personal property that I keep with me, and will not hold the hospital responsible in case of loss or disappearance. I acknowledge that i have been encouraged to send valuables and belongings home. ?? Review of Valuable and Belonging List: With patient, With family Date for Pt to Sign Valuables/Belongings: 03/22/25 15:37:00 ?? Other Discharge Information ? Case Management Discharge Plan?? Discharge Plan?? Discharge Agency Information?? Discharge Level of Care at Discharge: Homehealth/VNA Name of Agency #1: [facility] Discharge VNA/Hospice/Home Care: [facility] [phone] Service Categories #1: Home health aide, Occupational Therapy, Physical Therapy, Group Home, Speech Therapy ?? Service Comments #1: [facility] will contact you after discharge to schedule a visit & remume services. Call them with questions or if you don't hear from them within 24hrs after discharge. ?? Pulmonary Rehab Status?? Pulmonary Rehab Discharge Status?? Respiratory Rate: 18 br/min ? Common Emergency Awareness Tips IS IT A STROKE? Act FAST and Check for these signs: FACE Does the face look uneven? ARM Does one arm drift down? SPEECH Does their speech sound strange? TIME Call at any sign of stroke ?? Heart Attack Signs Chest discomfort: Most heart attacks involve discomfort in the center of the chest and lasts more than a few minutes, or goes away and comes back. It can feel like uncomfortable pressure, squeezing, fullness or pain. Discomfort in upper body: Symptoms can include pain or discomfort in one or both arms, back, neck, jaw or stomach. Shortness of breath: With or without discomfort. Other signs: Breaking out in a cold sweat, nausea, or lightheaded. Remember, MINUTES DO MATTER. If you experience any of these heart attack warning signs, call to get immediate medical attention! ?? Smoking can increase your chances of developing chronic health problems and can cause harmful effects to other family members in your house. If you smoke, you are strongly encouraged to quit. Please call [facility] at [phone] or [phone] or log in to [email or web address] for referrals to smoking cessation programs. ?? 888 Suicide & Crisis Lifeline is available 29/10 if you or someone you know needs to find a reason to keep living. By calling 165 you'll be connected to a skilled, trained counselor at a crisis center in your area. INPATIENT DISCHARGE INSTRUCTIONS SIGNATURE PAGE LIN PILI Location:[facility] Registration Date and Time:03/22/2025 13:51 EST Primary Care Physician: Malika Loja, Attending Physician: Nico Arenas MD, I PILI LIN, have received the above patient education materials/instructions and have verbalized understanding. If ambulance or transport services are being used I further acknowledge being given a choice of service. ?? If you need to contact me, please call me at this number: . Patient/Floor Installation Mechanic Name: Patient/Floor Installation Mechanic Signature: Relationship to Patient: Witness Name/Signature: Date: * Nico Arenas MD: PERFORM, SIGN, VERIFY Event Display: Patient Education Handout Authored Date: [id number] * Era Schaefer RN: PERFORM Event Display: Patient Education Leaflets Authored Date: [id number] Implantable Loop Recorder (ILR) Placement Post Procedure Instructions ?? 744 Post Procedure Instructions: Implantable Loop Recorder (ILR) ??Caring for the Site: ? Your incision will be covered with a protective barrier called a Tegaderm dressing. This dressing can be removed on day 2 after the procedure. Under the dressing, the incision is closed with surgical glue and Steri-strips, which look like pieces of tape. ??? Please leave Steri-strips in place until they fall off on their own, or you may gently remove them after 2 weeks. There may be a small blood stain on your dressing ??? this is normal. ??? You may shower the day after your procedure. o Do not soak or scrub your incision or let the shower spray directly onto the area until your incisionis fully healed (usually 2-4 weeks). o Gently pat the area dry and do not apply lotions, ointments,or perfumes, etc. to the area until it is fully healed. ?? When to call the office: ??? Concerns for infection: o Redness, swelling, increased drainage. o Fevers over 100-degree F ???If your incision opens or starts continuously bleeding. ?? At Home: ??? You will be given a home monitor for your ILR that communicates with the device clinic. Please keep this monitor plugged in, at all times, near where you sleep. It is your responsibility to ensure your monitor is connected so the device clinic receives your data. ??? Your monitor will be scheduled to automatically transmit a report to the clinic once a month, but it may transmit data between scheduled downloads. ??? The clinic will call you if there is an abnormality in your readings. ??? You will receive a temporary ID card for your device on the day of your procedure. A permanent ID will be mailed to you by the interior assemblies installer in a few weeks. Please carry your ID card with you at all times. ??? Please review the manual provided by your device interior assemblies installer. ?? The office number for the [facility] is [phone]. ?? For questions about your device or home monitor, please reach out to the interior assemblies installer. ??? [employer]: [phone] ??? [employer]: [phone] ??? [employer]: [phone] ??? [employer]: [phone] ?? * Era Schaefer RN: PERFORM Event Display: Patient Education Leaflets Authored Date: [id number] Bradycardia ?? [id number] Bradycardia A slow heart rate is less than 60 beats a minute. That is called bradycardia. Bradycardia can be normal. Or it can be caused by medicines. Or it can be a sign of a disease. The slow heart rate may not be constant. It can come and go. It's a concern when it is very low, or when you have symptoms. Symptoms Symptoms of bradycardia are: ??? Dizziness or feeling lightheaded. ??? Weakness. ??? Trouble breathing. ??? Fainting. ??? Sleepiness. ??? More trouble exercising than normal because of tiredness (fatigue). ??? Confusion or trouble concentrating. ?? Causes Bradycardia can have many causes. Some can be linked to your heart. But some may be linked to otherthings. Nonheart-related causes: ??? Being older. ??? A side effect of certain medicines. These include beta- blockers, calcium channel blockers, digitalis, clonidine, lithium, and medicines to treat arrhythmias, such as amiodarone. ??? Health conditions, like low thyroid (hypothyroidism) and electrolyte disorder. Other examples are??low body temperature (hypothermia) and sleep apnea. ??? Athletes, especially long- distance runners, may have a slow heart rate. This can be normal. ??? Brain injury, such as stroke or bleeding inside the brain. Heart-related causes: ??? Coronary artery disease. This includes angina or past heart attack (acute myocardial infarction). ??? Heart valve disease. ??? Heart muscle disease (cardiomyopathy). ??? Congestive heart failure.??? Sick sinus syndrome. This is when your heart's natural pacemaker is no longer working correctly. ??? Heart block. This is when your heart's natural electrical pathways no longer work correctly. ??? Diseases that enter the heart, such as sarcoid. ??? Heart infections. Sometimes the cause for the arrhythmia can't be found. Bradycardia that causes symptoms is sometimes reversible. When more severe bradycardia continues, you may need a pacemaker. Bradycardia may not cause symptoms. In this case, your health care providermay decide to watch it over time. ?? Home care You can care for yourself at home: ??? Go back to your normal activities when you are feeling back to normal. ??? If you have any of the symptoms of bradycardia when you exert yourself, stop. Don't exert yourself. Wait until you have seen your health care provider for an assessment. ??? Work with your provider on any lifestyle changes you need. These might mean changing your diet, stopping smoking if you are a smoker, and starting an exercise program. ?? Follow-up care Follow up with your health care provider as advised. ?? Call 911 Call 911 right away if: ??? You have chest pain. ??? You have chest pain that spreads to the shoulder, arm, neck, or back. ??? You have trouble breathing. ??? You have a slow heart rate with dizziness or lightheadedness. ??? You fainted or lost consciousness. ?? When to get medical care Contact your health care provider if: ??? You have occasional weakness. ??? You feel dizzy or lightheaded. ??? You have abnormal trouble exercising. ?? Last Reviewed Date: 2024 00:00:00 ?? 6626-1784 The [employer]. All rights reserved. This information is not intended as a substitute for professional medical care. Always follow your healthcare professional's instructions. ?? Patient Care team information Care Team Personnel Name: Kaden Mathews RN Position: [facility] RN Member Role: Primary Care Nurse Name: Naomie Waggoner RN Position: [facility] RN Member Role: Primary Care Nurse Name: Ashley Mcrae RN Position: [facility] RN Member Role: Primary Care Nurse Name: Ryann Alvarado RN Position: [facility] RN Member Role: Primary Care Nurse Name: Meg Leblanc RN Position: [facility] RN Member Role: Primary Care Nurse Name: Iris Rahman RN Position: [facility] RN Member Role: Primary Care Nurse Name: Chloe Wagoner RN Position: [facility] RN Member Role: Primary Care Nurse Name: Yolande Serrano RN Position: [facility] RN Member Role: Primary Care Nurse Name: Rossi Rivera RN Position: [facility] RN Member Role: Primary Care Nurse Name: Denise Hanson RN Position: [facility] RN Member Role: Primary Care Nurse Name: Lee Ann Prabhakar RN Position: [facility] RN Member Role: Primary Care Nurse Name: Luci Matamoros RN Position: [facility] RN Member Role: Primary Care Nurse Name: Malika Loja Position: [facility] Outreach Member Role: PCP Address: [address] [place] [address] [place] [address]- Telecom: Name: [place] Small RN Position: S RN Member Role: Primary Care Nurse Name: Nidia Mcdermott RN Position: [facility] RN Member Role: Primary Care Nurse Name: Marcie Russo RN Position: [facility] RN Member Role: Primary Care Nurse Name: John Willis RN Position: [facility] RN Member Role: Primary Care Nurse Name: Jag Cowan RN Position: [facility] RN Member Role: Primary Care Nurse Name: Irlanda Schaeffer RN Position: [facility] RN Member Role: Primary Care Nurse Name: Shane Alvarado Position: [facility] RN Member Role: Primary Care Nurse Name: Albertina Jimenez RN Position: [facility] RN Member Role: Primary Care Nurse Name: Jack Long RN Position: [facility] RN Member Role: Primary Care Nurse Name: Farshad Rojas RN Position: [facility] RN Member Role: Primary Care Nurse Name: Mojgan Wadsworth RN Position: [facility] RN Member Role: Primary Care Nurse Name: Abigail Jc RN Position: [facility] RN Member Role: Primary Care Nurse Name: Damaris Pinedo RN Position: [facility] RN Member Role: Primary Care Nurse Name: Farrah Merrill RN Position: [facility] RN Member Role: Primary Care Nurse Name: Rachele Mitchell RN Position: [facility] RN Member Role: Primary Care Nurse Name: Emily Pringle RN Position: [facility] RN Member Role: Primary Care Nurse Name: Mera Garcia Position: [facility] RN Member Role: Primary Care Nurse Name: Kaila Isaac RN Position: [facility] RN Member Role: Primary Care Nurse Care Team Related Persons Name: SYED LIN Insurance Providers Guarantor name: VIVIAN Health Plan Information #: 1 Payer: [employer] H[employer] Payer Identifier: VIVIAN Member Number: [id number] Group Number: [id number] Subscriber Identifier: [id number] Relationship to Subscriber: self Coverage Type: Medicare HMO Coverage Verification Date: NA Telecom: NA Address:
--- NOTE | 2025-03-30 13:26 | A.OFFVIS_ITS ---
Vital Signs 03/30/25 13:27 Height 5 ft 4 in Weight 117 lb 8 oz BMI 20.2 BP 100/80 Blood Pressure Location Rt brachial Position Sitting Pulse 74 Pulse Source Pulse Oximeter Pulse Oximetry (%) 100 Intake Visit Reasons: Follow up Intake Note: Pt presents for 6 month follow up for cervical spinal stenosis. [employer] Logger Required: No Accompanied by: Self / Same As Patient Allergies No Known Allergies Allergy (Verified 03/30/25 13:26) Medication List - Last Reconciled 03/30/25 by JOSEPH Branch kdivptlwyx-llyegur-G-mefolate 600-2-6 mg (Cerefolin Brain Wellness) 1 tab PO DAILY 60 days amiodarone 200 mg PO DAILY amlodipine 2.5 mg PO DAILY apixaban (Eliquis) 2.5 mg PO BID cholecalciferol (vitamin D3) 10 mcg PO DAILY diltiazem HCl CD 120 mg PO DAILY donepezil 10 mg PO BEDTIME 90 days fluticasone propion-salmeterol 250-50 mcg/dose 1 inh inhalation Q12H ibwjsamjojt-qgdmjjvft-knxkveio 100-62.5-25 mcg (Trelegy Ellipta) 1 ea inhalation DAILY folic acid 1 mg PO DAILY furosemide mg PO gabapentin 100 mg PO BID 90 days gabapentin 300 mg PO BEDTIME 90 days magnesium glycinate 200 mg (2 x 100 mg magnesium) PO BID 90 days mecobalamin (vitamin B12) 5,000 mcg orally daily; 90 days memantine 28 mg PO DAILY 90 days mirtazapine 7.5 mg PO BEDTIME 90 days riboflavin (vitamin B2) 400 mg PO DAILY 90 days tramadol 50 mg PO TID PRN HPI Comments Details: 89-yr-old female presents for f/u telephone visit. Pt is accompanied by her dtr Yvette. The patient herself is not feeling very well today, her head feels heavy and she is light sensitive. She is hoping to be able to go home as soon as possible. She continues to live in her own home, however her stepdaughter has been staying with her for several months, and she has many close from and family who support her care. She recently underwent IPR loop recorder placement following mx hospitalizations for PNA, syncope and bradycardia. She has recently underwent mx cardiac medication changes. During her recent hospitalizations, her donepazil was stopped, however this was resumed by us in collaboration w/ her stretch machine operator, She has had a decreased appetite. When her cognition is better, she is more aware that she needs to eat. She has tried up to Gabapentin 300mg daily at bedtime around 7:30pm, which helps her heavy headedness. She does have as-needed tramadol 50mg order, uses 1/2 tab prn for heavy headedness. She did start Ceroflin, which has been helpful for her cognition. Pt is continuing to have heavy headedness. Her neck seems more tight, and her cervical ROM is a bit more restricted. She currently has home VNA services- home PT/OT/HYDRO ELECTRIC STATION OPERATOR has been ordered after her last [facility] hosp admit discharge. Her heavy headedness is more frequent, near daily. Worse in the am and better in the evening. When the heavy headedness is worse, her STM is worse. PFSH Medical History Cataract COPD (chronic obstructive pulmonary disease) HTN (hypertension) Cognitive dysfunction Surgical History H/O: hysterectomy History of back surgery Social History Household Members: None Housing: House Alcohol intake: current Alcohol intake frequency: holidays/special occasions only Patient Tobacco Use Status: Former Tobacco user Physical Exam Exam Exam: Patient appears uncomfortable, tired, with her head down, but easily lifts her head and engages in conversation when conversation is directed specifically to her. Short term memory lapses noted. Chronic bilateral cervical tightness Slow to stand, but overall steady gait Vital Signs: Last Vital Signs Pulse 74 03/30/25 13:27 BP 100/80 03/30/25 13:27 Pulse Ox 100 03/30/25 13:27 BMI result Body Mass Index 20.2 Const General: cooperative and no acute distress Resp Effort & Inspection: normal respiratory effort and able to speak in complete sentences Assessment & Plan Assessment & Plan (1) Cognitive dysfunction: Comment: Forgetfulness, repeating herself, impaired executive functioning. Code(s): F09 - Unspecified mental disorder due to known physiological condition Category: Medical (2) Migraine without aura: Code(s): G43.009 - Migraine without aura, not intractable, without status migrainosus Category: Medical Qualifiers: Status migrainosus presence: without status migrainosus Intractability: not intractable Qualified Code(s): G43.009 - Migraine without aura, not intractable, without status migrainosus (3) Headache: Code(s): R51.9 - Headache, unspecified Category: Medical Qualifiers: Headache type: cervicogenic headache Qualified Code(s): G44.86 - Cervicogenic headache (4) Cervical spinal stenosis: Comment: Multilevel degenerative spinal arthropathy. Moderate spinal canal stenosis at C5-C6. Mild spinal canal stenoses at C4-C5 and C6-C7. Moderate to severe neural foraminal stenoses from C3-C7. Code(s): M48.02 - Spinal stenosis, cervical region Category: Medical Plan For headache, migraine, cervicalgia: May try to slowly increase gabapentin from 300 mg at bedtime, to 100-200 mg twice a day and 300 mg at bedtime. Continue Mag and B2. Mirtazapine 7.5 mg daily at bedtime Continue PT Previous trials- Amitriptyline- not tolerated. Contraindications- BBs as pt is already on amlodipine and normotensive. Future considerations: low dose baclofen or cyclobenzaprine. ? For impaired cognition: Continue cerofolin cognitive supplement. Continue Namenda 28mg qd for now. Continue Donepazil 10mg qhs. ? f/u in 3-6 months or sooner prn Medications: New gabapentin 300 mg PO BEDTIME 90 caps 4RF 90 days mirtazapine 7.5 mg PO BEDTIME 90 tabs 1RF 90 days Changed From gabapentin 200 mg (2 x 100 mg) PO BEDTIME 90 days 180 caps 3RF To gabapentin 100 mg PO BID 360 caps 3RF 90 days Coding Level of Care Code Est Pt Level 4 (87478) Diagnoses Cognitive dysfunction F09 Migraine without aura and without status migrainosus, not intractable G43.009 Status migrainosus presence: without status migrainosus Intractability: not intractable Cervicogenic headache G44.86 Headache type: cervicogenic headache Cervical spinal stenosis M48.02
[2025-03-30 13:27] VITALS: BP 100/80; PULSE 74; O2SAT 100; BMI 20.2
--- OUTSIDE RECORDS SUMMARY | 2025-03-30 14:32 | XMS_ITS | Continuity of Care Document ---
Author Name instED, Medical Address [address] [place] [id number] Organization Unknown Address [address] [place] [address] Medications No known medications Problems No known problems
--- OUTSIDE RECORDS SUMMARY | 2025-03-30 14:32 | XMS_ITS | Encounter Summary ---
Author Organization [facility] Address [address] [place] [address] Encounters * CPT with Medical instED at [employer] on 2025-03-26 { reasonForRequest : well being check , patientReports : Weakness /tachycardia , denies :[ History of Heart Attack, in the setting of active chest pain , Active Chest pain, radiates to neck jaw and or arm , Diaphoretic/Sweatin g , Describes as crushing , Sudden onset of nausea/Vomiting and shortnessof breath. , Shortness of Breath , Unable to speak in full sentences without distress , Palpitations, feeling dizzy , Chest pain, increased fatigue , CHF history, increased swelling and edema ], chiefComplaints : Weakness ,"pmh : Arrhythmias (e.g., Atrial Fibrillation), Chronic Obstructive Pulmonary Disease (COPD), Hypertension, Tonsillectomy, Chronic Kidney Disease, Dementia (e.g., Alzheimer's Disease), Co ngestive Heart Failure , allergies : Ibuprofen, Lisinopril, Losartan ,&quot ;otherAllergies :null, painAssessment : , visitOutcome : &q uot;, additionalComments : 89 y.o female complains of Weakness\nPatient's daughter making referral \nPatient recently discharged yesterday from hospital secondary to low BP and low HR \nPatient taken off of amiodarone and amlodipine and a loop recorder was placed.\nDaughter says she seems \ off today\ \nendorsing neck pain, mild chest pain that comes and goes, lightheadedn ess when moving. Decreased appetite today compared to yesterday.\ndenies any fever or chills, denies any coughing, nausea, vomiting or diarrhea. \nendorses some fatigue and just moving slower. also earlier complained of her heart racing. reviewed red flags. Requesting insted assessment as they don't want to have to go back to the ER unless necessary.\n\n\nI provided information on the mobile health provider response time and advised the patient and/or caregiver to monitor reported signs and symptoms. I discussed the warning signs of when to seek emergency care. } InstED visit for a female patient with complaints of weakness and concern for low blood pressure/heart rate. Patient presents with daughter at home. Daughter explains the patient was recently evaluated at the ED for a syncopal episode at home as well as some accompanying low heart rate. Patient wasdischarged yesterday and has been still feeling off today. Patient presents resting in a recliner at home. Vital signs taken as listed. No fever noted. 12 lead EKG performed with normal sinus rhythm noted. Consulted with [facility] who ordered BMP. Blood drawn without complication and results uploaded and review reviewed with Dr. Roth. Patient advised to increase PO fluids and follow up with outpatient providers. ORAL_MEDICATION, WOUND_CARE Written by Medical instED on 2025-03-26
--- OUTSIDE RECORDS SUMMARY | 2025-03-30 14:32 | XMS_ITS | Continuity of Care Document ---
Author Name instED, Medical Address [address] [place] [id number] Organization Unknown Address [address] [place] [address] Medications No known medications Problems No known problems
--- OUTSIDE RECORDS SUMMARY | 2025-03-30 14:32 | XMS_ITS | Continuity of Care Document ---
Author Name instED, Medical Address [address] [place] [id number] Organization Unknown Address [address] [place] [address] Medications No known medications Problems No known problems
--- OUTSIDE RECORDS SUMMARY | 2025-03-30 14:32 | XMS_ITS | Encounter Summary ---
Author Organization [facility] Address [address] [place] [address] Encounters * CPT with Medical instED at [employer] on 2025-01-24 { reasonForRequest : , patientReports : , denies":[ Increased work of breathing/labored with or without fever , Unable to speak in full sentences without distress , Discoloration of skin -cyanosis , Needs to sleep sitting up, can t catch breath , Shortness of breath in setting of confusion ] , chiefComplaints : Breathing Problems , pmh : Arrhythmias (e.g., Atrial Fibrillation), Chronic Obstructive Pulmonary Disease (COPD), Hypertension, Tonsillectomy, Chronic Kidney Disease, Dementia (e.g., Alzheimer's Disease) , allergies : Ibuprofen, Lisinopril, Losartan , otherAllergies :null, painAssessment : &quo t;, visitOutcome : , additionalComments : 89 y.o female complains of Breathing Problems\n\nPatients daughter calling in to place a referral\nPatient seen yesterday, given neb with some relief\nRecently treated for PNA\nPatient seen in the 01/22 for shortness of breath, no PNA, but treated her for a COPD exacerbation; neb and steroids\nPatient discharged on PO Prednisone\La reports ongoing shortness of breath today, but improved from yesterday\nThey have been using her albuterol rescue inhaler Q4hrs as directed \nThey have an appt with Pulmonolgy Saturday and will discuess a prescription for a neb machine, daughter will also call tomorrow\nNo current wheezing \nShe does not wear supplemental o2\nUses trelegy daily\nOn eliquis\nDaukseniater would likeher evaluated } Patient Chief complained today. Noted to be shortness of breath, patient and daughter. Note that all signs of symptoms have been ongoing for approximately one week prior to [facility] arrival at scene today. Patient daughter expresses that within the last month the patient has been hospitalized for pneumonia two times. Patient seen by [facility] providers on 01-22-2025. Patient was given a Duo nebulizer as well as was told to use her albuterol inhaler once every 4 hours as needed for assistance with difficulty breathing. Patient has known history of COPD as well as a history of smoking, currently Non-smoker. Patient as well as daughter today would appreciate a general assessment as well as treatment if possible. As of time of this call, patient denies any chest pain, nausea, vomiting, diarrhea, dizziness and or changes in vision. Patient allergies noted. Non-neural focal exam, afebrile, patient vitals fully within normal limits for the baseline of the patient. Patient noted to be ambulatory with assistance of person. However, during this visit, patient was seated in her chair during entirety. Upon auscultation of the lungs [facility] provider notes specific expiratory crackles and wheezing and lower left lobe. Benign abdominal exam. No noted new and or worsening lower extremity edema. Patient is AYALA times 4 with a GCS of 15. [facility] Marquis holt consulted While on scene with [facility] patient is given a Duo nebulizer as well as 500 mg azithromycin per [facility] order. Patient notes that after her duo nebulizer her breathing does not feel any better and or worse. Patient is educated by [facility] provider on the use of her incentive. Spirometer as well as her acapella device. [facility] sends over a prescription for azithromycin to the local pharmacy of the patient. Patientas well as daughter are fully educated on red flag signs and symptoms and informed to call emergency services if any present. Patient informed she may call her PCP and or insted for further assistance if needed. ORAL_MEDICATION, POC_FLU_STREP, COVID_TEST Written by Medical instED on 2025-01-24
--- OUTSIDE RECORDS SUMMARY | 2025-03-30 14:32 | XMS_ITS | Continuity of Care Document ---
Author Name instED, Medical Address [address] [place] [id number] Organization Unknown Address [address] [place] [address] Medications No known medications Problems No known problems
--- OUTSIDE RECORDS SUMMARY | 2025-03-30 14:32 | XMS_ITS | Encounter Summary ---
Author Organization [facility] Address [address] [place] [address] Encounters * CPT with Medical instED at [employer] on 2025-03-01 { reasonForRequest : Patient has a swollen left food and Ankle. , patientR eports : , denies :[ Blair Flash, circumferential blair ,"Blair reported with black tissue to the area , Open skin area after a fall with uncontrolled bleeding , Abscess/infection with streaking noted, presence of fever or without"], chiefComplaints : Extremity Pain, Extremity Swelling , pmh : Arrhythmias (e.g., Atrial Fibrillation), Chronic Obstructive Pulmonary Disease (COPD), Hypertension, Tonsillectomy, Chronic Kidney Disease, Dementia (e.g., Alzheimer's Disease), Congestive Heart Failure , allergies : Ibuprofen, Lisinopril, Losartan , otherAllergies&quot ;:null, painAssessment : , visitOutcome : , additionalComments : 89 y.o female complains of Extremity Pain, Extremity Swelling\n\nDaughter reporting symptoms. Patient with swollen L foot and ankle starting a couple of days ago and worsening today. Pain with even light touch. Was recently taken off gabapentin by accident during a hospital stay - daughter has reached out to neurologist to ask if she can be back on it. Multiple recent admissions for PNA, AF and pulmonary edema. New medication change about a week ago - amiodarone - was previ ously on cardizem. Unable to visualize foot due to pain when getting sock off. Was able to walk with and without walker earlier today but more pain throughout the day while bearing weight. Daughter thought it was just her pinky toe the other day and reached out to PCP for podiatry referral. Has taken tylenol and gabapentin today - applied heating pad recently. On eliquis BID. Hx of CKD. \n\nI provided information on the mobile health provider response time and advised the patient and/or caregiver to monitor reported signs and symptoms. I discussed the warning signs of when to seek emergency care. } [facility] responds to the listed address for an 89 yof w/ a c/c of L foot pain. Upon arrival, pt's daughter, w/ whom she lives, answers the door for [facility]. Pt is found seated in a recliner in the living room watching TV. She has her head resting on her hand and has an affect of boredom, but she makes eye contact and smiles at [facility]. She tells [facility] her L foot has been hurting for awhile now and says awhile is a few days or a week . Daughter says pt has been having some foot pain for a few days, but today she was trying to walk w/ her walker andthe pain was significant enough to cause to limp and wince. Pt denies any trauma to the foot or ankle. She says it hurts on the top of her toes. Daughter says pt has c/o pain from the ankle to the toes. She has been taking Tylenol for pain w/ questionable success. Pt can be a poor historian, according to daughter. Pt is denying cp, sob, n/v/d, abd pain, fevers or chills. She describes the foot pain as a constant pain but it does not radiate and no numbness or tingling beyond her baseline. Ddx: foot sprain, tendinitis, stress fx, DVT [facility] examines pt's foot. Foot appears to be normal upon inspection. It is not hot, red, or swollen and no deformities are noted. It is normothermic and pulses are present on dorsal and posterior malleolus. L foot looks the same as the R foot and pt can move her foot and ankle, painful when moving toes. She is very tender to touch on the toes and especially the toe nails, which are very long. Cap refill is 2-3 sec. Bernice's sign is positive on the L and negative on the right. Vital signs are obtained and [facility] contacts [facility] and discusses the above. [facility] does not feel it is a DVT and pt is safe to stay home this evening and keep the foot elevated and encourages a follow up call to her PCP in the morning. Daughter and pt are happy w/ the plan. [facility] advises of the warning signs of when to seek emergency care. Pt is left in stable condition. [facility] is clear. Report completed by ABHILASH Jimenez [id number]. IV_(FLUIDS_AND/OR_MEDICATION), MEDICATION_IM, ORAL_MEDICATION, WOUND_CARE, ORTHOSTATIC_VITAL_SIGNS Written by Medical instED on 2025-03-01
--- OUTSIDE RECORDS SUMMARY | 2025-03-30 14:32 | XMS_ITS | Continuity of Care Document ---
Author Name instED, Medical Address [address] [place] [id number] Organization Unknown Address [address] [place] [address] Medications No known medications Problems No known problems
--- OUTSIDE RECORDS SUMMARY | 2025-03-30 14:32 | XMS_ITS | Encounter Summary ---
Author Organization [facility] Address [address] [place] [address] Encounters * CPT with Medical instED at [facility] on 2025-01-21 { reasonForRequest : HCproxy requesting claim be sent to [facility] in order to receive abill\nPt's HCproxy reporting trouble breathing>COPD>has given albuterol, emergency inhaler>recently had pneumonia, 2x in the hospital in the last few weeks , patientReports :"COPD; Cough; Shortness of breath with exertion , denies :[ Increased work of breathing/labored with or without fever , Unable to speak in full sentences without d istress , Discoloration of skin -cyanosis , Needs to sleep sitting up, can t catch breath , Shortness of breath in setting of confusion , Cough, fever greater than 2 days , Lower extremity swelling , History of asthma, increased use of inhaler , COVID Exposure , Sputum increase , Pain with inspiration&quo t;], chiefComplaints : Breathing Problems, Cough , pmh : Arrhythmias (e.g., Atrial Fibrillation), Chronic Obstructive Pulmonary Disease (COPD), Hypertension, Tonsillectomy, Chronic Kidney Disease, Dementia (e.g., Alzheimer's Disease) , allergies :"Ibuprofen, Lisinopril, Losartan , otherAllergies :null, painAssessment : , visitOutcome : , additionalComments : 89 y.o female complains of Breathing Problems\nPatient daughter making referral. patient recently hospitalized [facility] 01/13 discharged. questioning active pneumonia along with other complaints including back pain. She states her mom is tired and heavy headed and is having increased shortness of breath. and a little non productive cough albuterol inhaler doesn't seem to be helping. denies any fever or chills. denies any nausea vomiting or diarrhea. reported decreased energy level, poor appetite. \nhas chronic kidney disease and is on Eliquis. [facility] \nI provided information on the mobile health provider response time and advised the patient and/or caregiver to monitor reported signs and symptoms. I discussed the warning signs of when to seek emergency care. } InstED visit for elderly female patient with complaint of breathing problems. Patient presents at home with her daughter who was primary historian given patients baseline dementia. Daughter reports two nearly one week hospitalizations in the last month for diagnosed pneumonia. Hospital had recommended a stay at rehab, which family declined preferring to manage her at home with some additional home services. Patient was discharged home about one week ago and daughter notes patient has never recovered fully to baseline, today noting some increased shortness of breath and malaise. Patient presents sitting in recliner in no obvious distress. Vital signs taken as listed. No fever noted. Lung sounds clear bilaterally. Family has been trying to have her utilize her albuterol inhaler since she almost never uses it. Consulted with [facility] who ordered flu and Covid swab in addition to albuterol nebulizer treatment. Flu and Covid came back negative. Albuterol nebulizer treatment givenwith patient reporting improvement in her breathing afterwards. Spoke with Dr. Kunz again who advised pt to follow up with PCP and pulmonology for possible home nebulizer prescription. Reviewed safe dosage guidelines for albuterol inhaler. Reviewed red flags. Pt education provided. ORAL_MEDICATION, POC_FLU_STREP, COVID_TEST Written by [facility] on 2025-01-21
--- OUTSIDE RECORDS SUMMARY | 2025-03-30 14:32 | XMS_ITS | Encounter Summary ---
Author Organization [facility] Address [address] [place] [address] Encounters * CPT with Medical instED at [place] on 2025-01-14 Hospitalized at [facility] 12/31-01/05/2025 with pneumonia. Readmitted back from 01/06-01/13/2025 with chest heaviness, bradycardia. No active infection. Donepezil discontinued. Discharged home with VNA services. Continues to feel weak and fatigued. Declined rehab stay, family preferred patient to go home to her own environment. Has chronic neck pain and head heaviness . Took T izanidine today and drowsy. Cannot get an appt with her PCP for hospital follow- up until 01/29. { reasonForRequest : , patientReports : , denies&quot ;:[], chiefComplaints : Weakness , pmh : Arrhythmias (e.g., Atrial Fibrillation), Chronic Obstructive Pulmonary Disease (COPD), Hypertension, Tonsillectomy, ChronicKidney Disease, Dementia (e.g., Alzheimer's Disease) , allergies : Ibuprofen, Li sinopril , otherAllergies :null, painAssessment : , visitOu tcome : , additionalComments : HPI review } [facility] makes pt contact a 89 YO F cc of lethargy reported by daughter. [facility] obtains vital signs which are WNL. PT daughter explains a run of hospital admissions for suspected pneumonia. During the hospital stays doctors were slightly concerned over bradycardia believed to be caused by one of her meds. They withheld PTs Aricept and on discharge instructed her not to take it. PT was then being given tanizdine for chronic neck pain which she usually receives cervical epidurals for but couldn't because of scheduling and the hospital admissions. PT daughter explains pt is tired, slow to respond, and not entirely her normal self. [facility] contacts [facility] and explains above mentioned. PT has no fever, chronic chest heaviness, stemi was ruled out in hospital. And not currently being treated for pneumonia. PT is prescribed to take the tanizdine three times a day. [facility] orders aistat which is uploaded and discussed and 500mL of LR. IV 20G is placed int he posterior left forearm. LR is administered with minimal improvement. PT instructed to stop taking tanizdine to see if symptoms improve and to only use if neck pain is severe. Otherwise follow up with PCP. Red flags such as sob, chest pain, n/v/d/ams discussed as 911 levels emergencies on top of worsening symptoms. PT daughter understands. MISean clear. ORAL_MEDICATION, WOUND_CARE Written by Medical instED on 2025-01-14
--- OUTSIDE RECORDS SUMMARY | 2025-03-30 14:32 | XMS_ITS | Continuity of Care Document ---
Author Name [facility]ED, Medical Address [address] [place] [id number] Organization Unknown Address [address] [place] [address] Medications No known medications Problems No known problems
--- OUTSIDE RECORDS SUMMARY | 2025-03-30 14:32 | XMS_ITS | Continuity of Care Document ---
Author Name [facility], Medical Address [address] [place] [address] Organization Unknown Address [address] [place] [address] Medications No known medications Problems No known problems
--- OUTSIDE RECORDS SUMMARY | 2025-03-30 14:32 | XMS_ITS | Encounter Summary ---
Author Organization [facility] Address [address] [place] [address] Encounters * CPT with Medical [facility] at [facility] on 2025-02-17 { reasonForRequest : Patient's Blood pressure drops, but normally recovers quickly. ", patientReports : Palpitations, feeling dizzy; Chest pain, increased fatigue; Weakness/tachycardia , denies :[ History of Heart Attack, in the setting of active chest pain , Active Chest pain, radiates to neck jaw and or arm , Diaphoretic/Sweating , Describes as crushing , Sudden onset of nausea/Vomiting and shortness of breath. , Shortness of Breath , Unable to speak in full sentences without distress , CHF history, increased swelling and edema ], chiefComplaints": Low Blood Pressure , pmh : Arrhythmias (e.g., Atrial Fibrillation), Chronic Obstructive Pulmonary Disease (COPD), Hypertension, Tonsillectomy, Chronic Kidney Disease, Dementia (e.g., Alzheimer's Disease), Congestive Heart Failure , allergies : Ibuprofen, Lisinopril, Losartan , otherAllergies :null, painAssessment : &quot ;, visitOutcome : , additionalComments : 89 y.o female complains of Low Blood Pressure\nPatients daughter making referral \nPatient was being transferred this morning and rodrick blood pressure dropped to 65/40 Pulse n the 40s and retook after sitting down on toilet 135/68 P 48 currently 114/70 P74 while on the phone. Patient denies any chest pain or sweating. endorses fatigue, lightheadedness and dizziness and weakness. denies any nausea vomiting or abdominal pain. Daughter stated same thing happened on Saturday and went to ER they monitored her and took her off of diuretic Cardizem and amlodipine. Nurse recommended ER for evaluation secondary to age and symptoms. Daughter refused and is requesting insted assessment. provided information on the mobile health provider response time and advised the patient and/or caregiver to monitor reported signs and symp toms. I discussed the warning signs of when to seek emergency care. } InstED visit for elderly female, patient with weakness, low blood pressure, and near syncope. Patient presents at home with daughter who requested the visit today. Daughter reports patient was in thehospital for a few days discharge just yesterday following a syncopal episode at the dinner table. Patient has been having hypotensive dips as well. Patient had thorough testing and observation whilein the hospital and her cardizem, amlodipine, and diuretic were all discontinued pending follow up outpatient providers. Patient presents lying supine in bed somnolent. Vital signs taken as listed. Patient has no complaints at this time. Lungs clear bilaterally. 12 lead EKG complete completed and uploaded to [facility]. Consult consulted with Dr. Cook with plan for continued monitoring of patient. Family informed they mayrequest a reevaluation in coming days. Encouraged to request sooner appointment in the outpatient setting. Reviewed red flags for ED. Patient education provided. IV_(FLUIDS_AND/OR_MEDICATION), POC_BLOODWORK, ORTHOSTATIC_VITAL_SIGNS, IV_MEDICATION Written by Medical instED on 2025-02-17
--- OUTSIDE RECORDS SUMMARY | 2025-03-30 14:32 | XMS_ITS | Continuity of Care Document ---
Author Name [facility], Medical Address [address] [place] [id number] Organization Unknown Address [address] [place] [address] Medications No known medications Problems No known problems
--- OUTSIDE RECORDS SUMMARY | 2025-03-30 14:32 | XMS_ITS | Clinical Summary ---
Author Organization [facility] Address [address] [place] [address] Phone Care Team Providers Care Parts Cataloger Name Role Phone Malika Torres Primary Care Provider + Allergies Active Allergy Reactions Criticality Noted Date Comments Ibuprofen 04/22/2017 Other reaction(s): GI Upset Lisinopril Cough 04/22/2017 Losartan 11/24/2024 Medications gabapentin (NEURONTIN) 100 mg capsule Take 2 Capsules by mouth. 023 Active cyanocobalamin (VITAMIN B-12) 100 mcg tablet 1 tablet (100 mcg total). 023 Active donepeziL (ARICEPT) 10 mg tablet 023 Active CHOLECALCIFEROL , VITAMIN D3, ORAL Take by mouth. Activ e riboflavin (VITAMIN B2) 400 mg tablet Take 1 tablet (400 mg total) by mouth. 023 Active memantine (NAMENDA XR) 28 mg extended release capsule 023 Active acetaminophen (TYLENOL) 500 mg tablet Take by mouth 2 (two) times a day. Active apixaban (Eliquis) 2.5 mg tablet Take 1 tablet (2.5 mg total) by mouth 2 (two) times a day. 180 tablet 3 Active fluticasone-ume clidinium-vilan terol (Trelegy Ellipta) 100-62.5-25 mcg inhalerIndicati ons:COPD (chronic obstructive pulmonary disease) ([facility] V24, [facility] V28),Dyspnea on exertion Inhale 1 puff (100 mcg total) by mouth 1 (one) time each day. Rinse mouth with water after use to reduce aftertaste and incidence of candidiasis. Do not swallow. 60 each 11 025 2025 Active albuterol HFA (PROAIR HFA ; PROVENTIL HFA ; VENTOLIN HFA) 90 mcg/actuation inhaler Inhale 2 puffs by mouth every 6 (six) hours if needed for wheezing. Active diclofenac (VOLTAREN) 1 % topical gel Apply topically 2 (two) times a day. Active lidocaine 4 % patch Apply 1 patch topically 1 (one) time each day. Active Lasix 20 mg tablet Take 1 tablet (20 mg total) by mouth if needed. 20 mg every 48 hours PRN, administer only if the patient has a weight gain of more than 3 lbs in a day or 5 lbs in 3 days, along with any symptoms of shortness of breath or pedal edema Active magnesium oxide 400 mg magnesium capsule Take 400 mg by mouth. Active budesonide (Pulmicort) 0.25 mg/2 mL nebulizer solutionIndicat ions:Chronic obstructive pulmonary disease with acute exacerbation ([facility] V24, [facility] V28) Take 2 mL (0.25 mg total) by nebulization 2 (two) times a day for 15 days. Rinse mouth with water after use to reduce aftertaste and incidence of candidiasis. Do not swallow. 60 mL Active albuterol 2.5 mg /3 mL (0.083 %) nebulizer solutionIndicat ions:Chronic obstructive pulmonary disease, unspecified COPD type ([facility] V24, [facility] V28),Dyspnea on exertion Take 3 mL (2.5 mg total) by nebulization every 6 (six) hours if needed for wheezing. 75 mL 025 2025 Active amiodarone (PACERONE) 200 mg tablet Take 0.5 tablets (100 mg total) by mouth 1 (one) time each day. Active pyridoxine (B-6) 250 mg tablet Take 1 tablet (250 mg total) by mouth 1 (one) time each day. Active tiZANidine (ZANAFLEX) 2 mg capsule Take 1 capsule (2 mg total) by mouth 3 (three) times a day. 2024 Discontinued(T herapy completed) albuterol 2.5 mg /3 mL (0.083 %) nebulizer solutionIndicat ions:Chronic obstructive pulmonary disease, unspecified COPD type (CMS/HCC V24, CMS/HCC V28),Dyspnea on exertion Take 3 mL (2.5 mg total) by nebulization every 6 (six) hours if needed for wheezing. 75 mL 2024 Discontinued Cardizem CD 120 mg 24 hr capsule Take 1 capsule (120 mg total) by mouth. 2024 Discontinued(D iscontinued by another clinician) metoprolol tartrate (LOPRESSOR) 25 mg tabletIndicatio ns:PAF (paroxysmal atrial fibrillation) (CMS/HCC V24, CMS/HCC V28) Take 0.5 tablets (12.5 mg total) by mouth 2 (two) times a day. 60 each 2 2024 Discontinued(D iscontinued by another clinician) albuterol 2.5 mg /3 mL (0.083 %) nebulizer solutionIndicat ions:Chronic obstructive pulmonary disease, unspecified COPD type (CMS/HCC V24, CMS/HCC V28),Dyspnea on exertion TAKE 3ML (2.5MG TOTAL) BY NEBULIZATION ROUTE EVERY 6 HOURS NEEDED FOR WHEEZING 75 mL 2024 Discontinued(R eorder) Active Problems Problem Noted Date Diagnosed Date Atrial fibrillation 03/24/2025 Chronic obstructive pulmonary disease 03/24/2025 Stage 3b chronic kidney disease 03/24/2025 Weakness 03/24/2025 Plantarflexion deformity of right foot Plantar wart 03/24/2025 Pain in left foot 03/24/2025 Neck pain 03/24/2025 Dementia 03/24/2025 Syncope 03/08/2025 Assessment & Plan (03/08/2025 10:06 AM EST): As reviewed above, the patient had an acute mental status change with hypotension and was transferred to [facility] to rule out CVA and for further evaluation. Her daughter was present. Will follow up with her post hospital. PAF (paroxysmal atrial fibrillation) 11/26/2024 CKD stage 3b, GFR 30-44 ml/min 04/21/2024 A-fib 11/27/2023 Overview (03/24/2025): Went to [facility]. They diagnosed AFIB and prescribed Eliquis 2.5 mg twice a day. Disease due to severe acute respiratory syndrome coronavirus 2 (SARS-CoV-2) 01/04/2023 Overview (03/24/2025): Problem added by Discern Expert Elevated serum creatinine 12/17/2018 Hypertension 11/01/2017 Assessment & Plan (02/09/2025 11:07 AM EST): Patient's blood pressure is under excellent control today, she will continue on amlodipine and diltiazem as ordered at this time. COPD (chronic obstructive pulmonary disease) Cataract, right eye 05/20/2017 Encounters Date Type Department Care Team Description 03/29/2025 Telephone Internal Medicine [address] [phone] Magda Sorenson [place] 03/26/2025 Telephone Internal Medicine [address] [phone] Malika Torres PA 03/23/2025 Telephone Internal Medicine [address] [phone] Magda Sorenson [place] 03/19/2025 Telephone Internal Medicine [address] [phone] Malika Torres PA 03/18/2025 1:30 PM EST Office Visit Internal Medicine [address] [place] [phone] Malika Torres PA Syncope, unspecified syncope type (Primary Dx); Hospital discharge follow-up; Neck pain 03/15/[address] [facility] [address] [place] [address] [place], [place] 03/10/2025 Telephone [facility] [address] [place] [address] Isabella Rm NP 03/10/2025 Telephone [facility] [address] [facility] [address] [place] [phone] Laura Caro MD 03/09/[address] [facility] [address] [facility] [address] [place] [phone] [place] [facility] 03/08/2025 8:10 AM EST Office Visit [facility] [address] [place] [address] Kadi Mcneal NP Syncope, unspecified syncope type (Primary Dx) 03/08/[address] [facility] [address] [place] [phone] [place] 03/08/2025 Telephone [facility] [address] [place] [phone] [place] 03/06/2025 Results Follow-Up [facility] [address] [place] [address] Kadi Mcneal NP 03/06/2025 Results Follow-Up [facility] [address] [place] [address] Kadi Mcneal NP 03/03/2025 10:30 AM EST Lab Draw Station - [address] [facility] [place] [phone] Paroxysmal atrial fibrillation ([facility] V24, [facility] V28) (Primary Dx); PAF (paroxysmal atrial fibrillation) ([facility] V24, [facility] V28); CKD stage 3b, GFR 30-44 ml/min ([facility] V24, [facility] V28) 03/03/2025 9:53 AM EST - 03/03/2025 11:59 PM EST Hospital Encounter [facility] Xray [address] [place] [phone] Left foot pain Discharge Disposition: Home or Self Care 03/03/2025 9:51 AM EST - 03/03/2025 11:59 PM EST Hospital Encounter [facility] Xray [address] [place] [phone] Chronic obstructive pulmonary disease with acute exacerbation ([facility] V24, [facility] V28) Discharge Disposition: Home or Self Care 03/03/2025 Results Follow-Up Internal Medicine [facility] [address] [place] [phone] Malika Torres PA 03/03/2025 Telephone [facility] Cardiology [facility] [address] [place] [phone] Laura Caro MD 03/02/[address] [facility] [address] [place] [phone] [place] 03/02/[address] [facility] [address] [place] [phone] [place] 03/01/2025 Telephone [facility] Cardiology [facility] [address] [place] [address] [place] [phone] Laura Caro MD 02/26/[address] [facility] [address] [place] [phone] Malika Torres PA 02/26/[address] [facility] [address] [place] [address] Colon, MARSHALL Man 02/25/[address] [facility] [address] [place] [address] Malika Torres PA 02/25/[address] [facility] [address] [address] Colon, MARSHALL Man 02/19/[address] [facility] [address] [place] [address] Colon, MARSHALL Man 02/18/[address] [facility] [address] [phone] Colon, MARSHALL Man 02/17/2025 Telephone [facility] - [facility] [address] [facility] [address] [place] [address] Kadi Mcneal NP 02/15/[address] [facility] [address] [address] Colon, MARSHALL Man 02/15/[address] [facility] [address] [address] Colon, Magda [place] 02/15/[address] [facility] [address] [phone] Colon, MARSHALL Man 02/15/[address] [facility] [address] [address] Colon, MARSHALL Man 02/12/2025 Telephone [facility] [place] [address] [place] [address] Charan Gomez MD 02/11/2025 11:30 AM EST Consult Orthopedic Surgery [facility] [address] [place] [address] Charan Gomez MD Subacromial bursitis of left shoulder joint (Primary Dx); Left shoulder pain 02/11/2025 Telephone Internal Medicine - [place] [address] [place] [phone] Lary Mckenzie MA 02/10/2025 Telephone Internal Medicine - [place] [address] [place] [address] Malika Torres PA 02/10/2025 Telephone Internal Medicine - [place] [address] [place] [phone] Magda Sorenson MA 02/09/2025 9:40 AM EST Office Visit [facility] - [address] [place] [phone] Kadi Mcneal NP Chronic atrial fibrillation (CMS/HCC V24, CMS/HCC V28) (Primary Dx); Chronic heart failure with preserved ejection fraction (CMS/HCC V24, CMS/HCC V28); Primary hypertension; PAF (paroxysmal atrial fibrillation) (CMS/HCC V24, CMS/HCC V28) 02/09/2025 Telephone Internal Medicine - [place] [address] [place] [phone] Magda Sorenson MA 02/05/2025 11:50 AM EDT Office Visit Pulmonology [facility] [address] [place] [address] Betsy Erickson NP Chronic obstructive pulmonary disease with acute exacerbation (CMS/HCC V24, CMS/HCC V28) (Primary Dx); Community acquired pneumonia, unspecified laterality 02/05/[address] [facility] [address] [place] [address] Magda Sorenson MA 02/03/2025 7:00 AM EDT Ancillary Procedure [facility] - [address] [place] [phone] PAF (paroxysmal atrial fibrillation) (CMS/HCC V24, CMS/HCC V28); Bradycardia 02/02/2025 Telephone Pulmonology - [place] [address] [facility] [address] [place] [phone] Betsy Erickson NP 02/02/[address] [facility] [address] [facility] [address] [place] [phone] Magda Sorenson MA 01/31/2025 Telephone [facility] Electrophysiology [address], [address] [phone] Bret Brambila MD 01/26/2025 Telephone [facility] [address] [place] [phone] Laura Caro MD 01/19/2025 10:58 AM EDT Anesthesia Event [facility] Pain Management [address] [place] [phone] Scotty Alonzo MD Swanson, Mona, CRNA 01/19/2025 10:43 AM EDT - 01/19/2025 11:59 PM EDT Hospital Encounter [facility] Xray [address] [place] [phone] Pain Discharge Disposition: Home or Self Care 01/19/2025 10:01 AM EDT - 01/19/2025 11:59 PM EDT Hospital Encounter [facility] Pain Management [address] [place] [address] Sherwin Doll DO Saliga, Jesse L, MD Swanson, Mona, CRNA Radiculopathy, cervical region Discharge Disposition: Home or Self Care 01/18/[address] [facility] [address] [phone] Magda Sorenson MA 01/15/[address] [facility] [address] [address] Magda Sorenson MA 01/06/[address] [facility] [address] [facility] [address] [place] [phone] Malika Torres PA 01/01/2025 Telephone Internal Medicine - [address] [place] [address] Malika Torres PA from Last 3 Months Immunizations Immunization Administration Dates Next Due Influenza trivalent, 0.5mL (Fluad) 65yo and olde r 12/15/2019,12/17/2018 Pfizer SARS-CoV-2 COVID-19, mRNA, LNP-S, preservative free 01/07/2021 Pneumococcal polysaccharide 23 valent (Pneumovax 23) 2yo and older 08/08/2002 Td Tetanus diptheria (Tdvax) 7yo and older 09/24 Zoster Live 10/02/2012 Surgical History Surgery Date Site/Laterality Comments BACK SURGERY PROCEDURE: HISTORICAL BACK SURGERY EYE SURGERY SECTION Medical History Medical History Date Comments Cataract, right eye 05/20/2017 DX:Cataract, right eye COPD (chronic obstructive pu lmonary disease) ([facility] V24, [facility] V28) 11/01/2017 DX:COPD (chronic o bstructive pulmonary disease) ([facility]) Hypertension 11/01/2017 DX:Hypertension A-fib ([facility] V24, [facility] V28) Acute kidney injury superimp osed on stage 3b chronic kidney disease ([facility] V24, [facility] V28) Dementia ([facility] V24, [facility] V28) Weakness Social History Tobacco Use Types Packs/Day Years Used Date Smoking Tobacco: Former Cigarettes Smokeless Tobacco: Never Alcohol Use Standard Drinks/Week Comments Not Currently 0 (1 standard drink = 0.6 oz pur e alcohol) Housing Instability Answer Date Recorde d Are you worried that in the next 2 months you may not have stable housing? No 03/18/2025 Food Access & Nutrition Answer Date Rec orded Do you have access to a vari ety of food including fruits and vegetables? Yes 03/18/2025 Access to Healthcare Answer Date Record ed Within the last 3 months, diana santana many times did you visit the emergency department for your medical care? 7 03/18/2025 Health Literacy Answer Date Recorded How often do you need to hav e someone help you when you read instructions, pamphlets, or other written material from your doctor or pharmacy? Often 03/18/2025 Caregiver: How often do you need to have someone help you when you read instructions, pamphlets, or other written material from your doctor or pharmacy? Not on file 03/18/2025 Financial Risk Answer Date Recorded How hard is it for you to pa y for the very basics like food, housing, medical care, and air conditioning / heating? Not very hard 03/18/2025 Transportation Answer Date Recorded Has the lack of transportati on kept you from meetings, work, or from getting things needed for daily living? No Has the lack of transportati on kept you from medical appointments or from getting medications? No 03/18/2025 Social Isolation Answer Date Recorded How often do you feel lonely or isolated from th ose around you? Rarely 03/18/2025 Food Risk Answer Date Recorded Within the past 12 months we worried whether our food would run out before we got money to buy more. Never true 03/18/2025 Within the past 12 months th e food we bought just didn't last and we didn't have money to get more. Never true 03/18/2025 Dependent Care Answer Date Recorded Do you need help finding or paying for care for your loved ones. For example, child center assistant or elderly care for an older adult? No 03/18/2025 Education Answer Date Recorded Do you think completing more education or training, like finishing a GED, going to college, or learning a trade, would be helpful for you? No 03/18/2025 Employment and Income Answer Date Recor ded During the last four weeks, have you been actively looking for work? No 03/18/2025 Living Situation Answer Date Recorded What is your living situation? Unrecognized valu e 03/18/2025 Interpersonal Safety Answer Date Record ed Physical Abuse Unrecognized value 01/19/2025 Verbal Abuse Unrecognized value 01/19/2025 Comments No Sex and Gender Information Value Date Recorded Sex Assigned at Female 02/18/2024 9:54 AM EST Legal Sex Female 7:19 PM EST Gender Identity Female 02/18/2024 9:54 AM EST Sexual Orientation Straight 02/18/2024 9: 54 AM EST Last Filed Vital Signs Vital Sign Reading Time Taken Comments Blood Pressure 117/62 03/18/2025 1:27 PM EST Pulse 75 03/18/2025 1:27 PM EST Temperature 37 C (98.6 F) 03/18/2025 1:27 PM EST Respiratory Rate 18 02/05/2025 12:02 PM EDT Oxygen Saturation 95% 03/18/2025 1:27 PM EST Inhaled Oxygen Concentration - - Weight 52.3 kg (115 lb 6.4 oz) 03/18/2025 1:27 P M EST Height 162.6 cm (5' 4 ) 03/08/2025 8:13 AM EST Body Mass Index 19.81 03/08/2025 8:13 AM EST Plan of Treatment Upcoming Encounters Date Type Department Care Team (Late st Contact Info) Description 04/05/2025 1:50 PM EST Office Visit Pulmonology - [place] [address] [phone] Betsy Erickson, NIKKI [address] [place] [phone] 04/14/2025 1:40 PM EST Office Visit [facility] - [facility] [address] [place] [phone] Kadi Mcneal NP [address] [place] [address] [address] [place] [phone] 04/27/2025 1:15 PM EST Office Visit Nephrology - [address] [phone] Mirza Crandall MD [address] [phone] 06/02/2025 10:00 AM EST Office Visit Internal Medicine - [place] [address] [phone] Malika Torres, PA [address] [address] Health Maintenance Due Date Last Done Comments Pneumococcal Vaccine: 50+ Years (2 of 2 - PCV) 08/09/2003 08/08/2002 Zoster Vaccines (1 of 2) 11/27/2012 10/02/2012 Medicare Annual Wellness Visit 03/17/2022 Osteoporosis Screening (Bone Density Screening) 03/17/2022 DTaP,Tdap,and Td Vaccines (2 - Td or Tdap) 09/24/2022 09/24/2012 COVID-19 Vaccine ( season) 2024 12/20/2023, 03/05/2022, 01/07/2021, Additional history exists Hypertension/CHF/CAD Annual BMP Blood Test 03/03/2026 03/03/2025, 09/19/2021 Falls Risk Assessment 03/18/2026 03/18/2025, 025 Social Influencers of Health Screening 03/18/2026 03/18/2025 Cholesterol Screening (Lipid Panel) 07/05/2026 07/05/2021 RSV Immunization Adult Patients Completed 12/20/2023 Influenza Vaccine Completed 01/03/2025, , 12/27/2022, Additional history exists Depression Screening Completed 03/18/2025 HIB Vaccines Aged Out No longer eligi ble based on patient's age to complete this topic HPV Vaccines Aged Out No longer eligi ble based on patient's age to complete this topic Hepatitis A Vaccines Aged Out No long er eligible based on patient's age to complete this topic Hepatitis B Vaccines Aged Out No long er eligible based on patient's age to complete this topic IPV Vaccines Aged Out No longer eligi ble based on patient's age to complete this topic MMR Vaccines Aged Out No longer eligi ble based on patient's age to complete this topic Meningococcal ACWY Vaccine Aged Out N o longer eligible based on patient's age to complete this topic Meningococcal B Vaccine Aged Out No l onger eligible based on patient's age to complete this topic RSV Immunization Patients Under 20 months Aged Out No longer eligible based on patient's age to complete this topic Varicella Vaccines Aged Out No longer eligible based on patient's age to complete this topic Procedures Procedure Name Priority Date/Time Associated Diagnosis Comments BASIC METABOLIC PANEL Routine 03/03/2025 10:35 AM EST PAF (paroxysmal atrial fibrillation) (CMS/HCC V24, CMS/HCC V28) THYROID STIMULATING HORMONE Routine 03/03/2025 10:35 AM EST PAF (paroxysmal atrial fibrillation) (CMS/HCC V24, CMS/HCC V28) PARATHYROID HORMONE INTACT Routine 03/03/2025 10:35 AM EST Paroxysmal atrial fibrillation (CMS/HCC V24, CMS/HCC V28) XR FOOT 3+ VIEWS LEFT Routine 03/03/2025 10:30 AM EST Left foot pain XR CHEST 2 VIEWS Routine 03/03/2025 10:2 9 AM EST Chronic obstructive pulmonary disease with acute exacerbation (CMS/HCC V24, CMS/HCC V28) XR SHOULDER 2+ VIEWS BILAT Routine 02/11/2025 12:02 PM EST Left shoulder pain Right shoulder pain CARDIAC TRAILER SECTIONS ASSEMBLER W/ CONNECTION (MCOT) Routine 02/03/2025 2:06 PM EDT PAF (paroxysmal atrial fibrillation) (CMS/HCC V24, CMS/HCC V28) Bradycardia LIPID PANEL Routine 07/05/2021 from Last 3 Months or Most Recently Relevant to Health Maintenance Results * (ABNORMAL) Thyroid stimulating hormone (03/03/2025 10:35 AM EST) TSH 0.34(L) 0.40 - 4.00 mcIU/mL 03/03/2025 1:03 PM EST [facility] Blood Venous blood specimen / Unknown Venipuncture / Unknown 03/03/2025 10:35 AM EST 03/03/2025 11:59 AM EST us Kadi Mcneal LIFE SUPPORT TECHNICIAN LAB BLOOD ORDERABLES Final Res ult [facility] [address] [place] [address], * Parathyroid hormone intact (03/03/2025 10:35 AM EST) PTH 33.3 18.5 - 88.0 pcg/mL 03/03/2025 12:59 PM [facility] Blood Venous blood specimen / Unknown Venipuncture / Unknown 03/03/2025 10:35 AM EST 03/03/2025 11:59 AM EST us Mirza Crandall MD LAB BLOOD ORDERABLES Final Resu lt [facility] [address] [place] [address], [place] [phone] * (ABNORMAL) Basic metabolic panel (03/03/2025 10:35 AM EST) [facility] Sodium 140 133 - 145 mmol/L 03/03/2025 1:08 PM [facility] Potassium 4.1 3.5 - 5.5 mmol/L 03/03/2025 1:08 PM [facility] Chloride 103 96 - 110 mmol/L 03/03/2025 1:08 PM [facility] CO2 26 21 - 32 mmol/L 03/03/2025 1:08 PM [facility] Anion Gap 11 3 - 11 03/03/2025 1:08 PM [facility] Glucose 105(H) 70 - 100 mg/dL 03/03/2025 1:08 PM [facility] BUN 22 5 - 25 mg/dL 03/03/2025 1:08 PM [facility] Creatinine 1.17(H) 0.50 - 1.10 mg/dL 03/03/2025 1:08 PM [facility] eGFR 45(L) >=60 mL/min/1. 73m2 03/03/2025 1:08 PM [facility] Comment:Calculation based on the Chronic Kidney Disease Epidemiology Collaboration (CKD-EPI) equation refit without adjustment for race. BUN/Creatinine Ratio 18.8 03/03/2025 1:08 PM EST [facility] Calcium 9.6 8.5 - 10.5 mg/dL 03/03/2025 1:08 PM EST [facility] Blood Venous blood specimen / Unknown Venipuncture / Unknown 03/03/2025 10:35 AM EST 03/03/2025 11:59 AM EST us Kadi Mcneal LIFE SUPPORT TECHNICIAN LAB BLOOD ORDERABLES Final Res ult [facility] [address] [place] [address], * XR Foot 3+ Views Left (03/03/2025 10:30 AM EST) Anatomical Region Laterality Modality Lower Extremities, Foot Left Radiogra phic Imaging 03/03/2025 10:3 9 AM EST Impressions 03/03/2025 10:43 AM EST No acute findings. There is evidence of osteotomy of the first metatarsal and a single internal fixation screw is present. There is deformity at the distal aspect of the fifth proximal phalanx with 3.4 mm medial subluxation of the middle phalanx relative to the proximal phalanx. This may reflect previous surgery or trauma. Obtaining any previous relevant study which may have been obtained at another facility would be helpful. Code 77899 -------- FINAL REPORT -------- Dictated By: Devin Carmona Dictated Date: 03/03/2025 10:39 ET Assigned Physician: Devin Carmona Reviewed and Electronically Signed By: Devin Carmona Signed Date: 03/03/2025 10:43 ET Workstation ID: [id number] Transcribed By: Self Edit Transcribed Date: 03/03/2025 10:39 ET Narrative 03/03/2025 10:43 AM EST HISTORY: The patient is an 89-year-old female with pain in the medial aspect of the left first toe. No history of trauma is provided. FINDINGS: AP, lateral, and oblique views of the left foot are obtained. No previous study is available for comparison. This examination demonstrates an internal fixation screw in the distal first metatarsal, and there is flattening of the medial aspect of the head of the first metatarsal. These findings are consistent with previous osteotomy. There is also deformity of the distal aspect of the fifth proximal phalanx along with 3.4 mm medial subluxation of the fifth middle phalanx relative to the proximal phalanx. These findings appear chronic. There is no fracture or dislocation. No arthritic change is seen. No soft tissue abnormality is demonstrated. Procedure Note Devin Carmona MD - 03/03/2025 HISTORY: The patient is an 89-year-old female with pain in the medialaspect of the left first toe. No history of trauma is provided. FINDINGS: AP, lateral, and oblique views of the left foot are obtained. Noprevious study is available for comparison. This examination demonstratesan internal fixation screw in the distal first metatarsal, and there isflattening of the medial aspect of the head of the first metatarsal. Thesefindings are consistent with previous osteotomy. There is also deformityof the distal aspect of the fifth proximal phalanx along with 3.4 mmmedial subluxation of the fifth middle phalanx relative to the proximalphalanx. These findings appear chronic. There is no fracture ordislocation. No arthritic change is seen. No soft tissue abnormality isdemonstrated. IMPRESSION: No acute findings. There is evidence of osteotomy of the first metatarsaland a single internal fixation screw is present. There is deformity at thedistal aspect of the fifth proximal phalanx with 3.4 mm medial subluxationof the middle phalanx relative to the proximal phalanx. This may reflectprevious surgery or trauma. Obtaining any previous relevant study whichmay have been obtained at another facility would be helpful. Code 23553 -------- FINAL REPORT -------- Dictated By: Devin Carmona Dictated Date: 03/03/2025 10:39 ET Assigned Physician: Devin Carmona Reviewed and Electronically Signed By: Devin Carmona Signed Date: 03/03/2025 10:43 ET Workstation ID: [id number] Transcribed By: Self Edit Transcribed Date: 03/03/2025 10:39 ET us Malika OSMAN IMG XR PROCEDURES Final Result * XR Chest 2 Views (03/03/2025 10:29 AM EST) Anatomical Region Laterality Modality Body Radiographic Maria Luz ging 03/03/2025 10:3 5 AM EST Impressions 03/03/2025 10:38 AM EST No acute pulmonary disease. No change since 01/26/2023. Code 74434 -------- FINAL REPORT -------- Dictated By: Devin Carmona Dictated Date: 03/03/2025 10:35 ET Assigned Physician: Devin Carmona Reviewed and Electronically Signed By: Devin Carmona Signed Date: 03/03/2025 10:38 ET Workstation ID: [id number] Transcribed By: Self Edit Transcribed Date: 03/03/2025 10:35 ET Narrative 03/03/2025 10:38 AM EST HISTORY: The patient is an 89-year-old female with provided history of recent pneumonia. However, please note that there has been no recent previous chest imaging at this institution. PET/CT scan performed 01/01/2024 demonstrated an indeterminate 13 mm right upper lobe lung nodule. FINDINGS: PA and lateral radiographs of the chest demonstrate normal appearance of the bony structures. The cardiac silhouette is within normal limits. The aortic knob is calcified. The lungs and costophrenic angles are clear. The right upper lobe lung nodule seen on PET/CT scan performed 01/01/2024 is not visualized radiographically, and was not seen on the most recent prior chest radiograph performed 01/26/2023. Procedure Note Devin Carmona MD - 03/03/2025 HISTORY: The patient is an 89-year-old female with provided history ofrecent pneumonia. However, please note that there has been no recentprevious chest imaging at this institution. PET/CT scan performed01/01/2024 demonstrated an indeterminate 13 mm right upper lobe lungnodule. FINDINGS: PA and lateral radiographs of the chest demonstrate normalappearance of the bony structures. The cardiac silhouette is within normallimits. The aortic knob is calcified. The lungs and costophrenic anglesare clear. The right upper lobe lung nodule seen on PET/CT scan performed01/01/2024 is not visualized radiographically, and was not seen on the mostrecent prior chest radiograph performed 01/26/2023. IMPRESSION: No acute pulmonary disease. No change since 01/26/2023. Code 60718 -------- FINAL REPORT -------- Dictated By: Devin Carmona Dictated Date: 03/03/2025 10:35 ET Assigned Physician: Devin Carmona Reviewed and Electronically Signed By: Devin Carmona Signed Date: 03/03/2025 10:38 ET Workstation ID: [id number] Transcribed By: Self Edit Transcribed Date: 03/03/2025 10:35 ET Betsy Erickson NP IMG XR PROCEDURES Final Result * XR Shoulder 2+ Views bilat (02/11/2025 12:02 PM EST) Anatomical Region Laterality Modality Upper Extremities, Shoulder Bilateral Comp uted Radiography Narrative 02/11/2025 12:08 PM EST X-rays of the bilateral shoulder in 4 views including an AP, Grashey, axillary, and Scap-Y, were obtained and reviewed today in the office. They demonstrate well-preserved glenohumeral joint space bilaterally but a small inferior humeral head osteophyte noted bilaterally as well as an inferior osteophyte on the left glenoid.There is well-maintained acromiohumeral interval bilateral. 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 us Charan Gomez MD IMG XR PROCEDURES Sarah l Result * CARDIAC TRAILER SECTIONS ASSEMBLER W/ CONNECTION (MCOT) (02/03/2025 2:06 PM EDT) Anatomical Region Laterality Modality Cardiac Diagnost ic Impressions 03/02/2025 8:05 AM EST 1. 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 2. The average heart rate was 68 bpm, minimum heart rate was 36 bpm, maximum heart rate was 154 bpm. 3. Total VE burden: 0.2% consisting of singles. 4. Total SVE burden: 0.5% consisting of singles, couplets, triplet, SVE Bigeminy, with Atrial Run's present. 5. There were 0 patient triggered symptomatic events. Narrative 03/02/2025 8:05 AM EST [facility] DIAGNOSTIC TESTING DEPARTMENT [address] [facility], [address] [address] TEL: FAX: TYPE OF TEST: 14 day ROCT monitor. DATES OF MONITORIN02/03/2025- 02/17/2025 REQUESTING PHYSICIAN: Kadi Mcneal NP PRIMARY CARE PROVIDER: JACQUI Lee INDICATION: PAF (paroxysmal atrial fibrillation); Bradycardia Kadi Mcneal NP [facility] CARDIAC SERVICES PROCEDURES Final Result * (ABNORMAL) Lipid panel (07/05/2021) LDL/HDL Ratio 2 0 - 4 Triglycerides 76 0 - 150 mg/dL Cholesterol 242(A) 0 - 200 mg/dL HDL 117 >=40 mg/dL LDL Cholesterol 110(A) 0 - 100 mg/dL Blood Venous blood specimen / Unknown Historical Provider LAB BLOOD ORDERABLES Sarah l Result from Last 3 Months or Most Recently Relevant to Health Maintenance Insurance [employer] Advance Directives Documents on File Type Date Recorded Patient Manager Branch Expl anation Health Care Decision (hx) 04/19/2023 HE ALTH CARE PROXY Health Care Decision (hx) 04/19/2023 HE ALTH CARE PROXY Health Care Decision (hx) 04/19/2023 HE ALTH CARE PROXY Health Care Decision (hx) 04/19/2023 HE ALTH CARE PROXY Health Care Decision (hx) 04/19/2023 HE ALTH CARE PROXY Health Care Decision (hx) 04/19/2023 HE ALTH CARE PROXY Health Care Decision (hx) 04/19/2023 HE ALTH CARE PROXY Health Care Decision (hx) 04/19/2023 HE ALTH CARE PROXY Health Care Decision (hx) 04/19/2023 HE ALTH CARE PROXY Health Care Decision (hx) 04/19/2023 HE ALTH CARE PROXY Health Care Decision (hx) 04/19/2023 HE ALTH CARE PROXY Health Care Decision (hx) 04/19/2023 HE ALTH CARE PROXY Health Care Decision (hx) 04/19/2023 HE ALTH CARE PROXY Health Care Decision (hx) 04/19/2023 HE ALTH CARE PROXY Health Care Decision (hx) 04/19/2023 HE ALTH CARE PROXY Health Care Decision (hx) 04/19/2023 HE ALTH CARE PROXY Health Care Decision (hx) 04/19/2023 HE ALTH CARE PROXY Health Care Decision (hx) 04/19/2023 HE ALTH CARE PROXY Health Care Decision (hx) 04/19/2023 HE ALTH CARE PROXY Health Care Decision (hx) 04/19/2023 HE ALTH CARE PROXY Care Teams Parts Cataloger Relationship Specialty Start Date End Date Malika Torres PA [address] [address] PCP - General Primary Care 03/09/24
--- OUTSIDE RECORDS SUMMARY | 2025-03-30 14:32 | XMS_ITS | Continuity of Care Document ---
Author Name instED, Medical Address [address] [place] [id number] Organization Unknown Address [address] [place] [address] Medications No known medications Problems No known problems
--- OUTSIDE RECORDS SUMMARY | 2025-03-30 14:33 | XMS_ITS | Encounter Summary ---
Author Organization Formerly [facility] Address [address] [facility] [address] [place] [address] Encounters * CPT with Medical instED at [employer] on 2025-02-10 { reasonForRequest : Pt's daughter reporting a fall after taking a shower>fell on her buttocks, slipped on a suspected injury on her toe>pt suspects she hits her arm on the way down>pt is on a blood thinner and daughter not sure on what the next step should be , patientReports : Weakness with fall, able to move all extremities , denies :[ Falls with head strike and LOC , Falls from a standing position, no LOC, patient is amnestic to the event , Falls with isolated injury and deformity noted to limb , Fallswith inability to move post fall , Cool extremities after fall or injury ], chiefComplaints : Falls, Extremity Pain , pmh : Arrhythmias (e.g., AtrialFibrillation), Chronic Obstructive Pulmonary Disease (COPD), Hypertension, Tonsillectomy, Chronic Kidney Disease, Dementia (e.g., Alzheimer's Disease) , allergies : Ibuprofen, Lisinopril, Losartan , otherAllergies :null, painAssessment : ,&quot ;visitOutcome : , additionalComments : 89 y.o female complains of Fal ls\nPatients daughter making referral\nPatient fell in the bathroom this morning. lost her balance putting on her pants and fell on her buttocks on the floor. denies any head strike or LOC. \npatientis mild confused at baseline.\npatient is able to ambulate with walker complains of pain in left bab y toe, denies any deformity or discoloration, denies redness or bruising. and has pain in left arm.able to move it but states there is mild pain and mild numbness and tingling in the extremity. denies any swelling, bruising or warmth or coolness at this time. denies any chest pain or shortness of breath. Denies any bleeding or open wounds. Patient is on Eliquis for afib.\nFamily aware we have noxray capability. \nreviewed red flags. \nrequesting insted assessment.\n\n\n\nI provided information on the mobile health provider response time and advised the patient and/or caregiver to monitor reported signs and symptoms. I discussed the warning signs of when to seek emergency care. } [facility] makes pt contact a 89 yo f cc of a fall called in by daughter. [facility] obtains vital signs. Daughter explains pt earlier was trying to put pants on and fell. PT was leaned over and fell backwards landing on her buttock, and striking her left shoulder and left pinky toe. PT is on blood thinners for a pre existing condition and daughter wanted her to be evaluated. PT has an appointment tomorrow for xrays on her right shoulder. PT reports pain but still has ROM andis comfortable at rest. Upon exam no bruising or deformities are noticed. PT did not strike her head. denies chest pain, n/v/ sob. PT allergies to losartan, lisinopril, and ibuprofen. [facility]. [facility] [place] that pt does not need emergent imaging at this time and tomonitor and observe the signs and symptoms. It is mentioned that tomorrow daughter should see if they can add on the left shoulder as well since shes having similar pain to the right. daughter understands [facility] clear. IV_(FLUIDS_AND/OR_MEDICATION), MEDICATION_IM, ORAL_MEDICATION, EKG, GLUCOSE, WOUND_CARE, ORTHOSTATIC_VITAL_SIGNS Written by Medical instED on 2025-02-10
--- OUTSIDE RECORDS SUMMARY | 2025-03-30 14:33 | XMS_ITS | Encounter Summary ---
Author Organization [facility] Address [address] [place] [address] Care Team Providers Care Business Development Manager Name Role Phone Malika Torres Primary Care Provider + Encounter Details Date Type Department Care Team ([facility] st Contact Info) Description 03/26/2025 Telephone Internal Medicine - [place] [address] [facility] [address] [place] [phone] Malika Torres PA [address] [facility] [address] [place] [address] Social History Tobacco Use Types Packs/Day Years [...] Record ed Within the last 3 months, ho w many times did you visit the emergency [...] care for your loved ones. For example, early childhood education worker or elderly care for an older adult? [...] 9:54 AM EST Sexual Orientation Straight 02/18/2024 9 :54 AM EST documented as of this encounter Progress Notes * Hiral Huynh RN - 03/26/2025 12:01 PM EST noted * Caryn Nation - 03/26/2025 11:31 AM EST Allison with [facility], Patient is back from the hospital and the agency will try to see her tomorrow. Just an FYI CB# [phone] just in case documented in this encounter Plan of Treatment Upcoming Encounters Date Type Department Care Team (Late st Contact Info) Description 04/05/2025 1:50 PM EST Office Visit Pulmonology - [place] [address] [facility] [address] [place] [phone] Betsy Erickson NP [address] [place] [phone] 04/14/2025 1:40 PM EST Office Visit [facility] [place] [address] [place] [phone] Kadi Mcneal NP [address] [place] [address] [address] [place] [phone] 04/27/2025 1:15 PM EST [facility] [address] [place] [phone] Mirza Crandall MD [address] [facility] [address] [place] [phone] 06/02/2025 10:00 AM EST Office Visit Internal Medicine - [place] [address] [place] [phone] Malika Torres PA [address] [facility] [address] [place], [place] [phone] documented as of this encounter Visit Diagnoses Not on filedocumented in this encounter Additional Health Concerns Assessment Noted Time PHQ-9 Depression Total Score: 0 03/18/20 25 1:32 PM EST documented as of this encounter Care Teams Business Development Manager Relationship Specialty Start Date End Date Malika Torres PA [address] [place] [address] PCP - General Primary Care 03/09/24 documented as of this encounter
--- OUTSIDE RECORDS SUMMARY | 2025-03-30 14:33 | XMS_ITS ---
Author Name [facility] Organization Unknown History of Medication Use Medication Directions Dispensed Refills Start Date End Date Stat amLODIPine (NORVASC) 2.5 mg tablet TAKE ONE TABLET BY MOUTH EVERY DAY 02/11/2025 active budesonide (Pulmicort) 0.25 mg/2 mL nebulizer solution Take 2 mL (0.25 mg total) by nebulization 2 (two) times a day for 15 days. Rinse mouth with water after use to reduce aftertaste and incidence of candidiasis. Do not swallow. 02/05/2025 active Cardizem CD 120 mg 24 hr capsule Take 1 capsule (120 mg total) by mouth. 02/01/2025 active Lasix 20 mg tablet Take 1 tablet (20 mg total) by mouth. 02/01/2025 active albuterol 2.5 mg /3 mL (0.083 %) nebulizer solution Take 3 mL (2.5 mg total) by nebulization every 6 (six) hours if needed for wheezing. 01/22/2025 active magnesium oxide 400 mg magnesium capsule Take 400 mg by mouth. 01/05/2025 active fluticasone-umeclidin ium-vilanterol (Trelegy Ellipta) 100-62.5-25 mcg inhaler Inhale 1 puff (100 mcg total) by mouth 1 (one) time each day. Rinse mouth with water after use to reduce aftertaste and incidence of candidiasis. Do not swallow. 11/24/2024 active apixaban (Eliquis) 2.5 mg tablet Take 1 tablet (2.5 mg total) by mouth 2 (two) times a day. 08/06/2024 active cyanocobalamin (VITAMIN B-12) 100 mcg tablet 1 tablet (100 mcg total). 01/03/2023 active riboflavin (VITAMIN B2) 400 mg tablet Take 1 tablet (400 mg total) by mouth. 01/03/2023 active gabapentin (NEURONTIN) 100 mg capsule Take 2 Capsules by mouth. 12/27/2022 active donepeziL (ARICEPT) 10 mg tablet 08/29/2022 active memantine (NAMENDA XR) 28 mg extended release capsule 06/24/2022 active acetaminophen (TYLENOL) 500 mg tablet Take by mouth 2 (two) times a day. active albuterol HFA (PROAIR HFA ; PROVENTIL HFA ; VENTOLIN HFA) 90 mcg/actuation inhaler Inhale 2 puffs by mouth every 6 (six) hours if needed for wheezing. active CHOLECALCIFEROL, VITAMIN D3, ORAL Take by mouth. acti ve diclofenac (VOLTAREN) 1 % topical gel Apply topically 2 (two) times a day. active lidocaine 4 % patch Apply 1 patch topically 1 (one) time each day. active tiZANidine (ZANAFLEX) 2 mg capsule Take 1 capsule (2 mg total) by mouth 3 (three) times a day. active Allergies Allergen Reaction Severity Comment Documented Date Source Statu s LOSARTAN 11/24/2024 [facility] active IBUPROFEN Other reaction( s): GI Upset 04/22/2017 [facility] active LISINOPRIL COUGH 04/22/2017 [facility] active Problems Problem Status Onset Date Problem Type Date of Resoluti on Source PAF (paroxysmal atrial fibrillation) ([facility] V24, [facility] V28) active 2024-11-26 ProblemAct [facility] Elevated serum creatinine active 2018-12-17 ProblemAct [facility] COPD (chronic obstructive pulmonary disease) ([facility] V24, [facility] V28) active 2017-11-01 ProblemAct [facility] CKD stage 3b, GFR 30-44 ml/min ([facility] V24, [facility] V28) active 2024-04-21 ProblemAct [facility] Cataract, right eye active 2017-05-20 ProblemAct [facility] Hypertension active 2017-11-01 ProblemAct [facility] Immunizations Vaccine Date Source Lot Number Status [facility] SARS-CoV-2 COVID-19, mRNA, LNP-S, preservative free 01/07/2021 [facility] [id number] completed Influenza trivalent, 0.5mL ( Fluad) 65yo and older 12/15/2019 [facility]SFRPATTI [id number] completed Influenza trivalent, 0.5mL ( Fluad) 65yo and older 12/17/2018 [facility] [id number] completed Zoster Live 10/02/2012 [facility] completed Td Tetanus diptheria (Tdvax) 7yo and older 09/24/2012 [facility] HS[facility] completed Pneumococcal polysaccharide 23 valent (Pneumovax 23) 2yo and older 08/08/2002 [facility] com pleted Care Team Organization Name Specialty Phone Email Start Date End Da te [facility] ACO 2024 [facility] Malika Torres Primary Care 02/05/2023 2023 [facility] DAMIAN GONZALEZ Primary Care 02/13/2022 11/25/19 24
--- OUTSIDE RECORDS SUMMARY | 2025-03-30 14:33 | XMS_ITS | Encounter Summary ---
Author Organization [facility] Address [address] [place] [address] Care Team Providers Care Oil Field Technician Name Role Phone Malika Torres Primary Care Provider + Reason for Visit * Reason Onset Date Comments Request For Order(s) 03/23/2025 [facility] Cert 03/08/25-05/15/24 Plan Of Care Encounter Details Date Type Department Care Team ([facility] st Contact Info) Description 03/23/2025 Telephone Internal Medicine [facility] [address] [facility] [address] [place] [phone] Magda Sorenson MA Social History Tobacco Use Types Packs/Day Years [...] for your loved ones. For example, child welfare director or elderly care for an older adult? [...] Orientation Straight 02/18/2024 9: 54 AM EST documented as of this encounter Progress Notes * Magda Sorenson MA - 03/26/2025 6:04 AM EST Scanned into chart and faxed to [facility] [phone] * Magda Sorenson MA - 03/23/2025 12:54 PM EST [facility] Cert 03/08/25-05/15/24 Plan Of Care Please sign & documented in this encounter Plan of Treatment Upcoming Encounters Date Type Department Care Team (Late st Contact Info) Description 04/05/2025 1:50 PM EST Office Visit Pulmonology - [place] [address] [facility] [address] [place] [phone] Betsy Erickson NP [address] [place] [phone] 04/14/2025 1:40 PM EST Office Visit [facility] - [facility] [address] [place] [phone] Kadi Mcneal NP [address] [place] [address] [address] [place] [phone] 04/27/2025 1:15 PM EST Office Visit Nephrology - [facility] [address] [place] [phone] Mirza Crandall MD [address] [facility] [address] [place] [phone] 06/02/2025 10:00 AM EST Office Visit Internal Medicine - [place] [address] [place] [phone] Malika Torres PA [address] [facility] [address] [place], [place] [phone] documented as of this encounter Visit Diagnoses Not on filedocumented in this encounter Additional Health Concerns Assessment Noted Time PHQ-9 Depression Total Score: 0 03/18/20 25 1:32 PM EST documented as of this encounter Care Teams Oil Field Technician Relationship Specialty Start Date End Date Malika Torres PA [address] [address] PCP - General Primary Care 03/09/24 documented as of this encounter
--- OUTSIDE RECORDS SUMMARY | 2025-03-30 14:33 | XMS_ITS | Encounter Summary ---
Author Organization [facility] Address [address] [place] [address] Encounters * CPT with Medical [facility] at [place] on 2025-01-23 { reasonForRequest : SOB , patientReports : , denies":[ Increased work of breathing/labored with or without fever , Unable to speak in full sentences without distress , Discoloration of skin -cyanosis , Needs to sleep sitting up, can t catch breath , Shortness of breath in setting of confusion&quo t;], chiefComplaints : Breathing Problems , pmh : Arrhythmias (e.g., Atrial Fibrillation), Chronic Obstructive Pulmonary Disease (COPD), Hypertension, Tonsillectomy, Chronic Kidney Disease, Dementia (e.g., Alzheimer's Disease) , allergies : Ibuprofen, Lisinopril, Losartan , otherAllergies :null, painAssessment : & quot;, visitOutcome : , additionalComments : 89 y.o female complains of Breathing Problems\n\nPatients daughter calling in to place a referral\nPatient seen 01/21 given a neb with positive effect\nRecently treated for PNA\nPatient seen in the ED yesterday for shortness of breath, no PNA, but treated her for a COPD exacerbation; neb and steroids\nPatient discharged on PO Prednisone\nDaumely reports shortness of breath currently and trying to keep her home\nThey used her rescue inhaler during intake with not much relief\nThey have an appt with Pulmonolgy Saturday and will discuess a prescription for a neb machine\nNo current wheezing but did have some wheezes earlier today, no congestion\nShe does not wear supplemental o2\nUses trelegy daily\nOn eliquis\ nDaukseniater would like her evaluated\n\nI provided information on the mobile health provider responsetime and advised the patient and/or caregiver to monitor reported signs and symptoms. I discussed the warning signs of when to seek emergency care. } [facility] makes pt contact a 89 yo F CC of sob, called in by pts daughter. [facility] obtains vital signs. PT daughter explains pt went to the ED yesterday for complaints of sob andchest tightness. While in hospital pt had chest xray done and it showed inflammation. PT was diagnosed with a episode of COPD exacerbation. PT was given a 5 day course of prednisone and a duo neb treatment and discharged home with follow up care to be provided at her water chaser. Today pts daughter was out shopping when her brother called her and said that the pt was having difficulty breathing. PT takes a once a day triology inhaler and has been prescribed an albuterol inhaler with a spacer to be used when needed. PT used the inhaler today and then started to have relief. [facility] contacts [facility] and explains above mentioned. PT lungs are noted as clear but overall diminished. [facility] advises pt/daughter to use the inhaler with albuterol every 4 hours and to continue the prednisone as prescribed. [facility] explains prednisone takes 48 hours until full effect and also to use the inhaler throughout the day and not only as a rescue treatment. PT and daughter understand. PT has an appointment with water chaser on saturday. [facility] also orders a duo neb for the pt now which is performed. PT reports only minor relief but lung sounds are more pronounced afterwards as well as some faint crackles. Red flags discussed such as chest pain, n/v/severe fever, or severe sob to call 911. PT/daughter understand.[facility] clear ORAL_MEDICATION, POC_FLU_STREP, COVID_TEST Written by [facility] 2025-01-23
--- OUTSIDE RECORDS SUMMARY | 2025-03-30 14:33 | XMS_ITS | Continuity of Care Document ---
Author Name [facility], Medical Address [address] [place] [id number] Organization Unknown Address [address] [place] [address] Medications No known medications Problems No known problems
--- OUTSIDE RECORDS SUMMARY | 2025-03-30 14:33 | XMS_ITS | Continuity of Care Document ---
Author Name [facility], Medical Address [address] [place] [address] Organization Unknown Address [address] [place] [address] Medications No known medications Problems No known problems
--- OUTSIDE RECORDS SUMMARY | 2025-03-30 14:33 | XMS_ITS | Encounter Summary ---
Author Organization [facility] Address [address] [place] [address] Care Team Providers Care Producer Director Name Role Phone Malika Torres Primary Care Provider + Reason for Visit * Reason Onset Date Comments Request For Order(s) 03/29/2025 [facility] Health Order # [id number] Encounter Details Date Type Department Care Team ([facility] st Contact Info) Description 03/29/2025 Telephone Internal Medicine [facility] [address] [place] [address] Magda Sorenson MA Social History Tobacco Use [...] do you feel lonely or isolated from ose around you? Rarely 03/18/2025 Food Risk [...] care for your loved ones. For example, residential child care counselor or elderly care for an older adult? [...] Progress Notes * Magda Sorenson MA - 03/29/2025 7:40 AM EST [facility] Health Order # [id number] Please sign & documented in this encounter Plan of Treatment Upcoming Encounters Date Type Department Care Team (Late st Contact Info) Description 04/05/2025 1:50 PM EST Office Visit Pulmonology - [place] 175 [facility] [address] [place] [phone] Betsy Erickson, NIKKI [address] [place] [phone] 04/14/2025 1:40 PM EST Office Visit [facility] - [address] [place] [phone] Kadi Mcneal NP [address] [place] [address] [phone] 04/27/2025 1:15 PM EST [facility] [address] [facility] [place] [phone] Mirza Crandall MD [address] [phone] 06/02/2025 10:00 AM EST Office Visit Internal Medicine - [place] [address] [phone] Malika Torres PA [address] [address] documented as of this encounter Visit Diagnoses Not on filedocumented in this encounter Additional Health Concerns Assessment Noted Time PHQ-9 Depression Total Score: 0 03/18/20 1:32 PM EST documented as of this encounter Care Teams Producer Director Relationship Specialty Start Date End Date Malika Torres PA [address] [address] PCP - General Primary Care 03/09/24 documented as of this encounter
--- OUTSIDE RECORDS SUMMARY | 2025-03-30 14:33 | XMS_ITS | Patient Health Record ---
Author Organization [facility] Address [address] [place] [address] Care Team Providers Care Production Staff Worker Name Role Phone Gurmeet BRADFORD, César Primary Care Provider Unavailab Sabrina Parsons Unavailable [phone] Allergies Allergen (clinical drug ingredient) Drug/Non Drug Allergy documented on EMR Reaction Allergy Type Onset Date Status Motrin nausea Drug Allergy Active Reason For Referral No Information Medications Medication SIG (Take, Route, Frequency, Duration) Notes Start Date End Date Status Spiriva HandiHaler A ctive Losartan Potassium 100 MG 1 tablet Orally Once a day Active Immunizations Vaccine Route Administration Date Status Comme nts COVID-19 Pfizer BioNTech Vaccine Unknown 06/10/2020 Administered 1st vaccine 03/28 Social History Alcohol Screen Question Answer Notes Did you have a drink containing alcohol in the p ast year? No Points 0 Interpretation Negative Tobacco use other than smoking: Question Answer Notes Are you an other tobacco user? 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 Plan Of Treatment Pending Test Test Name Order Date X ray : Foot, right 2V 11/05/2013 X ray : Foot, left 3V 01/03/2018 X ray : Foot, right 3V 01/23/2019 X ray : Foot, right 3V 01/03/2018 X ray : Foot, right 3V 06/04/2014 18196-CVOAGBN NAIL, 6 OR MORE 08/13/2014 41272-CTNWALJ NAIL, 6 OR MORE 03/26/2014 02871-JGAXOXN NAIL, 6 OR MORE 06/04/2014 88558-KHNGPGD NAIL, 6 OR MORE 12/08/2013 03937-CTEVGNG NAIL, 6 OR MORE 02/17/2013 94694-QPXGDTL NAIL, 6 OR MORE 06/16/2013 65323-NJYJFEA NAIL, 6 OR MORE 01/27/2021 09850-MWOILSN NAIL, 6 OR MORE 06/14/2021 19157-EERUEYP NAIL, 6 OR MORE 12/27/2015 49718-OCCKIRN NAIL, 6 OR MORE 07/27/2020 39952-CWDXQHY NAIL, 6 OR MORE 10/28/2020 93290-OQZLRUO NAIL, 6 OR MORE 07/22/2015 57959-ZNHCWMJ NAIL, 6 OR MORE 09/30/2015 78283-DPHZXVN NAIL, 6 OR MORE 10/29/2014 99063-WVJEQLZ NAIL, 6 OR MORE 12/31/2014 06849-QJTJFHR NAIL, 6 OR MORE 03/15/2015 72246-GOQVLKW NAIL, 6 OR MORE 05/17/2015 71447-EDKQHBK NAIL, 1-5 10/17/2012 03344-Pwbw Destruction, -14 10/17/2012 94611-Wwhh Destruction, -14 06/27/2012 83383-Yyqd Destruction, -14 06/16/2013 00451-Mxaq Destruction, -14 02/17/2013 98454-Lyop Destruction, -14 02/27/2011 17430-Pkxy Destruction, -14 07/31/2011 67774-Aubr Destruction, -14 11/27/2011 69431-Fhzq Destruction, -14 03/28/2012 54652-Bdao Destruction, -14 01/08/2014 56291-Vbfb Destruction, -14 12/08/2013 90423-Incv Destruction, -14 10/13/2013 53284-Qbmw Destruction, -14 11/05/2013 19871-Zokx Destruction, -14 06/04/2014 29822-Sxuu Destruction, -14 03/26/2014 03648-Xyhg Destruction, 04-2108/13/2014 85151-Llyn Destruction, 04-2105/17/2015 11817-Tmjw Destruction, 04-2103/15/2015 94266-Dhhs Destruction, 04-2112/31/2014 49622-Kfmn Destruction, 04-2102/01/2015 05446-Ebah Destruction, 04-2110/29/2014 84245-Wjaj Destruction, 04-2109/30/2015 57939-Cskj Destruction, 04-2107/22/2015 03852-Gpqh Destruction, 04-2101/03/2018 44957-Grjc Destruction, 04-2103/21/2018 62228-Ffup Destruction, 04-2101/27/2021 29945-Aamn Destruction, 04-2110/28/2020 37844-Kwto Destruction, 04-2112/27/2015 35746-Mkin Destruction, 04-2107/27/2020 07940-Tugg Destruction, 04-2106/14/2021 34792-Wfnsstzl Plate 06/14/2021 55684-Tboqbwmp Plate 01/08/2014 95995-Vipnryba Plate 03/28/2012 54129-Zznpogqq Plate 06/27/2012 10376-Ewzgjijx Plate 02/27/2011 87685-Acccegqb Plate 06/16/2013 42472, J0702- INJECT TENDON ORIGIN/INSER T 11/21/2018 58925,U7563-NVW TENDON SHEATH/LIGAMENT 0 12/08/2013 19985,Y8434-PHM TENDON SHEATH/LIGAMENT 0 11/05/201309605,K5650-QKG TENDON SHEATH/LIGAMENT 0 06/04/2014 Insurance Providers Payer Name Payer Address Payer Phone Subscriber Number Group Number Insured Name Patient Relationship to Insured Coverage Start Date Coverage End Date [employer] Preferred [address] [place] [address] [id number] Princess Javier Self - patient is the insured Medical (General) History Medical History History ICD Code chicken pox glaucoma measles Surgical History Surgery Date(Month/Year) bunionectomy 2005 laser surgery/eye bone spurs 2006 hammer toe 2004 varicose vein stripping 1961 Hospitalization History Reason Date(Month/Year) [facility]- passed out 03/2012
--- OUTSIDE RECORDS SUMMARY | 2025-03-30 14:33 | XMS_ITS | Encounter Summary ---
Author Organization [facility] Address [address] [place] [address] Encounters * CPT with Medical instED at [place] on 2024-12-06 { reasonForRequest : Patient feels \ heavy headed\ possible Migraine head problem and muscular neck problems. And possible Dehydrated. , patientReports :" , denies :[ Worst Headache of life , New onset of vision loss , Sudden onset -unilateral weakness/gait disturbance , Fall with head strike and altered LOC , New onset of Slurred speech or difficulty finding words , Sudden Mental status changes , Head pain with fever chills and neck pain , Seizure activity"], chiefComplaints : Headache , pmh : Arrhythmias (e.g., Atrial Fibrillation), Chronic Obstructive Pulmonary Disease (COPD), Hypertension, Tonsillectomy, Chronic Kidney Disease , allergies : Ibuprofen, Lisinopril , otherAllergies& quot;:null, painAssessment : , visitOutcome : , additionalComments : 89 y.o female complains of Headache\n\nPatients daughter calling in to place a referral.\nPatient who is followed by neurology\nPer neurology, they believe patients persistent \ head heaviness\ is in fact a migraine without the pain, in which they do treat\nPer daughter the pressure is usually a 2-3/10, and today is a 7-8/10 which can indicated something more may be going on, such as dehydration.\nPatient does have some associated eye and sinus pressure\nDaughter concerned because patient felt dizziness earlier with chills and declined to get bathed.\nPer daughter patient usually takes 2 tylenol and claritan each morning which helps her symptoms, but this past and especially today, patient has not felt well\nDenies any cough, congestion or cold symptoms\nDenies any chest pain, no shortness of breath, no palpitations or tachycardia, no fever 96.9, no nausea vomiting or diarrhea\nNoted some right eye droop, has happened in past\nDenies any slurred speech, no facial droop, tongue is midline, no arm drift\nPatient sees her it operations manager on saturday and her senior analyst market intelligence on , and sees her kidney doctor every april\nPatient resting in her chaircurrently but is more tired than usual.\nOn Eliquis for afib- uses trelegy for COPD,\Nammely would like her evaluated\n\nI provided information on the mobile health provider response time and advised the patient and/or caregiver to monitor reported signs and symptoms. I discussed the warning signs of when to seek emergency care. } 89-year-old female chief complaint today of head heaviness with some slight photophobia. Patient has the symptoms when she has a migraine per her neurologist. Patient also has cervical pain that she gets cervical epidural for. Patient states heaviness and head is five or six and daughter says that t ranslates to an eight or nine according to her mother???s pain tolerance. Pulse motor sensation intact times four slight weakness, which is her norm in the left arm and leg, slight droop in the righteyelid, which occurs when she has migraines. Patient denies chest pain or shortness of breath. Patient does have some short-term memory loss, but is still living on her own. Daughter said that the symptoms were relieved last time with IV fluids. Covid test and flu were performed and were negative. BMP was requested and performed, which showed no significant electrolyte kidney or bleeding issues. Dr. Jack suggested 500 cc of normal saline. Renuka established in right arm with 500 cc of fluid given over an Hour With patient stating that now the main area of pain is her neck and no longer pointedto her head when asked about the pain. Daughter asked her the same questions and she said the pain was still the same as it was before. Patient did appear more comfortable, was laughing, was talking about food, sat up and drank fluids without issue and appeared in much less distress than original Arrival. Dr. Jack contacted, IV discontinued, blood pressure was 137/73 Pulse of 60 pulse ox of 99 and patient was appearing more comfortable. Patient???s daughter was going to try warm compresses onher neck and some lidocaine patches on her neck which she said she always has some levels of neck pain and it requires the cervical epidural to stop that pain. Last one was in April. Patient and abbi boone thanked us for a visit. Dr. Jack approved the discontinuation of the IV and advised her to follow up with Saturday and Saturday appointments with her specialist. IV_(FLUIDS_AND/OR_MEDICATION), MEDICATION_IM, EKG, POC_FLU_STREP, COVID_TEST Written by Medical instED on 2024-12-06
--- OUTSIDE RECORDS SUMMARY | 2025-03-30 14:33 | XMS_ITS | Encounter Summary ---
Author Organization [facility] Address [address] [place] [address] Care Team Providers Care Decorative Engraver Name Role Phone Malika Torres Primary Care Provider + Encounter Details Date Type Department Care Team (Late st Contact Info) Description 03/06/2025 Results Follow-Up [facility] - [facility] [address] [place] [address] Kadi Mcneal NP [address] [place] [address] Dr [address] [place] [address] Social History Tobacco Use Types Packs/Day Years Used Date Smoking Tobacco: Former Cigarettes Smokeless Tobacco: Never Alcohol Use Standard Drinks/Week Comments Not Currently 0 (1 standard drink = 0.6 oz pur e alcohol) Interpersonal Safety Answer Date Record ed Physical Abuse Unrecognized value 01/19/2025 Verbal Abuse Unrecognized value 01/19/2025 Comments No Sex and Gender Information Value Date Recorded Sex Assigned at Female 02/18/2024 9:54 AM EST Legal Sex Female 7:19 PM EST Gender Identity Female 02/18/2024 9:54 AM EST Sexual Orientation Straight 02/18/2024 9: 54 AM EST documented as of this encounter Plan of Treatment Upcoming Encounters Date Type Department Care Team (Late st Contact Info) Description 04/05/2025 1:50 PM EST Office Visit Pulmonology - [place] [address] [place] [phone] Betsy Erickson, NIKKI [address] [place] [phone] 04/14/2025 1:40 PM EST Office Visit [facility] - [facility] [address] [place] [phone] Kadi Mcneal NP [address] [place] [address] Dr [address] [place] [phone] 04/27/2025 1:15 PM EST Office Visit Nephrology - [address] [phone] Mirza Crandall MD [address] [phone] 06/02/2025 10:00 AM EST Office Visit Internal Medicine - [place] [address] [facility] [address] [phone] Malika Torres PA [address] [facility] [address] [address] documented as of this encounter Visit Diagnoses Not on filedocumented in this encounter Care Teams Decorative Engraver Relationship Specialty Start Date End Date Malika Torres PA [address] [address] PCP - General Primary Care 03/09/24 documented as of this encounter
--- OUTSIDE RECORDS SUMMARY | 2025-03-30 14:33 | XMS_ITS | Encounter Summary ---
Author Organization [facility] Address [address] [place] [address] Care Team Providers Care Revenue Collector Name Role Phone Malika Torres Primary Care Provider + Encounter Details Date Type Department Care Team (Late st Contact Info) Description 03/03/2025 Results Follow-Up Internal Medicine - [place] [address] [facility] [address] [address] [place] [phone] Malika Torres PA [address] [facility] [address] [place] [address] Social History Tobacco Use Types Packs/Day Years [...] as of this encounter Progress Notes * JACQUI Lee - 03/08/2025 10:10 AM EST Already placed podiatry referral this morning * Hiral Huynh RN - 03/03/2025 2:31 PM EST Pt daughter Yvette called back and is interested in seeing podiatry as a f/u for the xray of the left foot and also states that pt is in great need to have toe Nails cut. * Hiral Huynh RN - 03/03/2025 1:49 PM EST Call to pt daughter Yvette # [phone], left message to call back documented in this encounter Plan of Treatment Upcoming Encounters Date Type Department Care Team (Late st Contact Info) Description 04/05/2025 1:50 PM EST Office Visit Pulmonology - [address] [place] [phone] Betsy Erickson, NIKKI [address] [place] [phone] 04/14/2025 1:40 PM EST Office Visit [facility] - Medical [facility] [address] [place] [phone] Kadi Mcneal NP [address] [place] [address] Dr [address] [place] [phone] 04/27/2025 1:15 PM EST [facility] [place] [phone] Mirza Crandall MD [address] [place] [phone] 06/02/2025 10:00 AM EST Office Visit Internal Medicine - [place] [address] [phone] Malika Torres PA [address] [address] documented as of this encounter Visit Diagnoses Not on filedocumented in this encounter Care Teams Revenue Collector Relationship Specialty Start Date End Date Malika Torres PA [address] [address] PCP - General Primary Care 03/09/24 documented as of this encounter
--- OUTSIDE RECORDS SUMMARY | 2025-03-30 14:33 | XMS_ITS | Encounter Summary ---
Author Organization [facility] Address [address] [place] [address] Care Team Providers Care Kier Boiler Name Role Phone Malika Torres Primary Care Provider + Reason for Visit * Reason Onset Date Comments ECHOCARDIOGRAM 03/10/2025 Encounter Details Date Type Department Care Team (Late st Contact Info) Description 03/10/2025 Telephone [facility] Cardiology [facility] [address] [place] [address] Laura Caro MD [address] [place] [address] Dr [address] [place] [address] Social History Tobacco Use Types [...] as of this encounter Progress Notes * Pearl Harriet - 03/10/2025 12:09 PM EST Echo appt on 03/12/25 has been cancelled. Thank you. * Adán Suarez - 03/10/2025 11:08 AM EST Please cancel upcoming echo, patient is currently in the hospital. documented in this encounter Plan of Treatment Upcoming Encounters Date Type Department Care Team (Late st Contact Info) Description 04/05/2025 1:50 PM EST Office Visit Pulmonology - [place] [address] [facility] [address] [place] [phone] Betsy Erickson NP [address] [place] [phone] 04/14/2025 1:40 PM EST Office Visit [facility] - [facility] [address] [place] [phone] Kadi Mcneal NP [address] [place] [address] [place] [phone] 04/27/2025 1:15 PM EST [facility] [address] [facility] [place] [phone] Mirza Crandall MD [address] [facility] [address] [place] [address] 06/02/2025 10:00 AM EST Office Visit Internal Medicine - [place] [address] [facility] [address] [place] [phone] Malika Torres PA 175 [facility] [address] [place] [address] documented as of this encounter Visit Diagnoses Not on filedocumented in this encounter Care Teams Kier Boiler Relationship Specialty Start Date End Date Malika Torres PA [address] [address] PCP - General Primary Care 03/09/24 documented as of this encounter
--- OUTSIDE RECORDS SUMMARY | 2025-03-30 14:33 | XMS_ITS | Encounter Summary ---
Author Organization [facility] [address] [place] [address] Care Team Providers Care Lieutenant Governor Name Role Phone Malika Torres Primary Care Provider + Encounter Details Date Type Department Care Team (Late st Contact Info) Description 03/06/2025 Results Follow-Up [facility] - [facility] [address] [place] [address] Kadi Mcneal NP [address] [place] [address] [address] [place] [address] Social History Tobacco Use Types [...] 1:50 PM EST Office Visit Pulmonology - [place] [address] [place] [phone] Betsy Erickson, NIKKI [address] [place] [phone] 04/14/2025 1:40 PM EST Office Visit [facility] - [facility] [address] [place] [phone] Kadi Mcneal NP [address] [place] [address] Dr [address] [place] [phone] 04/27/2025 1:15 PM EST Office Visit Nephrology - [address] [phone] Mirza Crandall MD [address] [phone] 06/02/2025 10:00 AM EST Office Visit Internal Medicine - [place] [address] [phone] Malika Torres PA [address] [address] documented as of this encounter Visit Diagnoses Not on filedocumented in this encounter Care Teams Lieutenant Governor Relationship Specialty Start Date End Date Malika Torres PA [address] [address] PCP - General Primary Care 03/09/24 documented as of this encounter
== END 2025-03-30 14:56 | disposition home or self-care (01) ==
LOC: HO.HSMS 13:23
PROVIDERS: PCP Internal Medicine; Visit Provider Nurse Practitioner Family
DX: R41.89 Other symptoms and signs involving cognitive functions and awareness (principal); G43.009 Migraine without aura, not intractable, without status migrainosus; G44.86 Cervicogenic headache; M48.02 Spinal stenosis, cervical region
CPT/HCPCS: 99214